=== PATIENT | male | born 1940 | race Caucasian/White ===

== ENCOUNTER 2023-03-12 13:01 | Inpatient (IN) ==
--- NOTE | 2023-03-12 13:17 | ED Triage Note ---
Date of Service March 12, 2023 Provider in Triage Author: Eden Gale History of Present Illness This patient was briefly evaluated while in triage. An abbreviated physical exam was performed. This patient is a 82-year-old Male who presents to the ED for evaluation of low back pain. Symptoms started 2 weeks ago. Denies recent fall/trauma. Denies fever/chills, n/v, abd pain, urinary symptoms. History of back surgery. No radiation. Physical Exam Constitutional: alert and oriented x3. no acute distress. HEENT: normocephalic, atraumatic. normal conjunctiva.PERRLA. EOM's grossly in tact. Respiratory: equal chest rise. normal respiratory effort, no accessory muscle use. Cardiovascular: regular rate and rhythm. MSK: moves all 4 extremities spontaneously Psych:appropriate mood and affect. Initial orders for labs and / or imaging were placed and patient was placed in the waiting area until a bed is available. Please see further documentation for the full ED course.
--- NOTE | 2023-03-12 14:34 | Emergency Department Note ---
History of Present Illness General Chief complaint: Back Injury/Pain Stated complaint: LOWER BACK PAIN Time Seen by Provider: 03/12/23 14:02 History of Present Illness Maximum Pain Intensity: 8 Patient is an 82-year-old male with past medical history significant for heart disease on Plavix and Eliquis, diabetes, GERD, hypothyroidism, among other chronic medical problems who presents to the emergency department for evaluation of bilateral low back pain x 2 and half weeks. He states his pain started acutely, he woke up and tried to get out of bed and he could not secondary to pain. There is no fall at that time, trauma or injury to the area. Remote history of a lumbar spine surgery. He reports midline mid to low back pain that radiates out the hips bilaterally. He subsequently has also noted abdominal bloating and constipation, has not had a bowel movement in a week. He did have a small small movement on Friday (3 days ago). He has been taking Tylenol for his symptoms. He has tried a heating pad. He saw PCP and was prescribed prednisone which did not help. He was seen in the ED at [facility], they report performed a CT scan, unclear of what structures were visualized, but per patient and family, "they did not find anything." The patient has suffered several falls in the last couple of days secondary to his pain. Family member does note however that he is able to negotiate the stairs in their home to get around and to use the bathroom. He has not had any trouble with bladder incontinence. He rates his pain an 8/10. Allergies Allergy/AdvReac Type Severity Reaction Status Date / Time sulfamethoxazole Allergy Mild Rash Verified 03/12/23 14:19 [From Bactrim] trimethoprim [From Bactrim] Allergy Mild Rash Verified 03/12/23 14:19 Past Med/Surg History Medical History (Updated 03/12/23 @ 16:51 by Caro Philippe) Hypothyroidism Hypertension GERD (gastroesophageal reflux disease) Diabetes Heart disease Surgical History History of total hip arthroplasty H/O lumbosacral spine surgery Heart valve replaced Social History Smoking Status: Unknown if ever smoked Preferred Language: Australian Feels Safe at Home: Yes Review of Systems A total of 10 systems reviewed and were otherwise negative Physical Exam Vital Signs Vital Signs - 24 hr 03/12/23 13:15 03/12/23 15:24 03/12/23 15:24 Temperature 36.9 C Temperature Source Temporal Artery Scan Pulse Rate 99 H Pulse Rate [Apical] 87 Respiratory Rate 20 16 Respiratory Effort / Characteristics Non-Labored Spontaneous Respiratory Depth Normal Respiratory Pattern Regular Blood Pressure 105/66 Blood Pressure [Left Arm] 109/81 Blood Pressure Mean 79 Blood Pressure Mean [Left Arm] 90 Blood Pressure Position Sitting Pulse Oximetry 97 97 96 Oxygen Delivery Method Room Air Room Air Sepsis Recent Fever Within 48 Hours No Sepsis New/Unexplained Change in Mental Status No Sepsis Action Taken by Nursing No Action Required PHYSICAL EXAM: Vital Signs: Reviewed Nurse's notes. CONSTITUTIONAL: Pleasant 82-year-old male laying on the gurney. There is mild discomfort with position changes. CARDIOVASCULAR: Regular rate and rhythm. Peripheral pulses easily palpable. RESPIRATORY: Breath sounds equal and clear to auscultation. ABDOMEN: Bowel sounds are present. Abdomen is soft, nontender and nondistended. INTEGUMENTARY: Multiple purpura lesions noted primarily on the arms. Several superficial skin tears and abrasions present. LYMPH: No lymphadenopathy. SPINE: Examination of the patient's back does not demonstrate any ecchymosis, abrasions or outward signs of trauma. Well-healed lumbar surgical scar noted. He does have a scabbed over lesion which was thought to be from a burn from his heating pad. Patient has midline discomfort to palpation over the low thoracic spine in the midline. There is no pain over the SI joint or the sciatic notch. He has increased pain with range of motion including rotation and flexion. EXTREMITIES: Leg lengths are symmetrical. Negative logroll bilaterally. Normal strength including dorsi-flexion and plantar flexion of the great toes and ankles and flexion and extension of the knees and flexion of the hips. Negative bilateral straight leg raise testing. Lower extremity DTRs are equal and symmetrical bilaterally. Distal pulses are easily palpable. Sensation light touch is intact over the lower extremities bilaterally. Course Course The patient was seen and evaluated as above. He has no old records our facility for review. He presents to the emergency department for evaluation of back pain that has been present for about 2-1/2 weeks. IV lock was initiated and laboratory studies were collected. CBC with differential, CMP, INR and urinalysis were obtained. CT scan of the thoracic, lumbar spine and abdomen and pelvis were ordered. Laboratory studies per my interpretation note a mildly daily elevated white count at 12,600, possibly related to recent prednisone therapy. No anemia. No thrombocytopenia. INR is 1.0. Potassium mildly elevated at 5.5. BUN and creatinine elevated at 50 and 1.78, unclear whether this is indicative of WENDY or more CKD as I have no old labs to compare to. Elevated nonfasting glucose 236. Mild elevation of transaminases of unclear significance. Urine microscopy notes no sign for UTI. The patient was treated with IV Zofran and morphine. CT scan of the abdomen and pelvis per my interpretation shows no evidence for obstruction. Radiologist concurs. No acute intra-abdominal pathology. CT scan of the thoracic spine per my interpretation note a T12 compression fracture. Radiologist states this is consistent with a burst fracture with 60% loss of vertebral height and retropulsion resulting in central canal stenosis. CT scan of the lumbar spine shows no evidence for acute fracture or subluxation of the lumbar spine. Diffuse degenerative changes noted. Case reviewed with attending physician, Dr. Mei. I did discuss thoracic spine CT scan findings with Dr. Cheng with orthopedic spine surgery. Patient discussed with investment fund manager. All laboratory and diagnostic imaging studies were discussed with patient and family. Given the CT scan findings, recommended further inpatient care, evaluation by orthopedic spine surgery, and consideration for short term rehab. Patient and his family were in agreement. Care was reviewed with the [facility] hospitalist service for admission/observation. Differential diagnoses considered included spinal stenosis, vertebral compression fracture, disc herniation, acute compression syndrome, cauda equina, diskitis, epidural abscess, hematoma, constipation, fecal impaction, bowel obstruction, mass or malignancy, lytic lesion, among others. Administered Medications Discontinued Medications Morphine Sulfate (Morphine Sulfate 2 Mg/Ml Carp) 2 mg IV NOW STA Stop: 03/12/23 16:42 Last Admin: 03/12/23 16:54 Dose: 2 mg Documented By: TORRIE Ondansetron HCl (Ondansetron Inj 2 Mg/Ml 2 Ml Vial) 4 mg IV NOW STA Stop: 03/12/23 16:42 Last Admin: 03/12/23 16:54 Dose: 4 mg Documented By: TORRIE Medical Decision Making Differential Diagnosis See ED course. Medical Records Attestation: I reviewed the patient's medical records. Home Medications Current Medication List: was personally reviewed by me Laboratory Data Attestation: I reviewed the patient's lab results. 03/12/23 14:50 03/12/23 14:50 Lab Results 03/12/23 03/12/23 Range/Units 14:50 16:23 WBC 12.66 H (4.8-10.8) K/ul RBC 5.44 (4.70-6.10) M/uL Hgb 16.7 (14.0-18.0) g/dl Hct 50.2 (42.0-52.0) % MCV 92.3 (80.0-100.0) fL MCH 30.7 (25.0-34.0) pg MCHC 33.3 (32.0-36.0) g/dL RDW Std Deviation 53.0 H (36.4-46.3) fL RDW Coeff of Miri 15.8 H (11.5-14.5) % Plt Count 350 (130-400) K/uL MPV 11.7 (9.4-12.4) fL Immature Gran % (Auto) 2.2 % Neut % (Auto) 85.2 % Lymph % (Auto) 9.3 % [place] % (Auto) 2.9 % Eos % (Auto) 0.0 % Baso % (Auto) 0.4 % Neut # (Auto) 10.78 H (1.40-6.50) K/uL Lymph # (Auto) 1.18 L (1.20-3.40) K/uL [place] # (Auto) 0.37 (0.11-0.59) K/uL Eos # (Auto) 0.00 (0.00-0.50) K/uL Baso # (Auto) 0.05 (0.00-0.20) K/uL Immature Gran # (Auto) 0.28 H (0.01-0.20) K/uL PT 10.9 (9.0-12.0) Seconds INR 1.0 (0.9-1.1) Sodium 138 (136-145) mmol/L Potassium 5.5 H (3.5-5.1) mmol/L Chloride 101 (98-107) mmol/L Carbon Dioxide 27 (21-32) mmol/L Anion Gap 10 (3-11) BUN 50 H (6-23) mg/dl Creatinine 1.78 H (0.6-1.4) mg/dl Est Cr Clr Drug Dosing Not Reportable Est GFR ( Amer) 40.6 ml/min Est GFR (Non-Af Amer) 35.0 ml/min BUN/Creatinine Ratio 28.1 H (10-20) Glucose 236 H (70-99(Fasting)) mg/dl Calcium 10.1 (8.6-10.3) mg/dl Total Bilirubin 1.3 H (0.2-1.0) mg/dl AST 38 (13-39) U/L ALT 85 H (7-52) U/L Alkaline Phosphatase 132 H (34-104) U/L Total Protein 7.9 (6.0-8.3) gm/dl Albumin 4.5 (3.4-5.0) gm/dl Globulin 3.4 (2.5-4.0) gm/dl Albumin/Globulin Ratio 1.3 (0.9-2) Urine Color Yellow Urine Appearance Clear (Clear) Urine pH 5.0 (4.5-7.5) Ur Specific [place] 1.036 H (1.000-1.030) Urine Protein 1+ H (Negative) Urine Glucose (UA) 3+ H (Negative) Urine Ketones Trace H (Negative) Urine Blood Negative (Negative) Urine Nitrite Negative (Negative) Urine Bilirubin Negative (Negative) Urine Urobilinogen Negative (Negative) Ur Leukocyte Esterase Negative (Negative) Urine WBC (Auto) 0 (0-5) /hpf Urine RBC (Auto) 0-4 (0-4) /hpf U Hyaline Cast (Auto) 1-5 (0-5) /lpf U Epithel Cells (Auto) 5-10 H (0-5) /lpf Urine Bacteria (Auto) Negative (Negative) Imaging Data Attestation: I personally reviewed and interpreted this imaging study as follows: Radiologist's Impression: Lumbar Spine CT 03/12/23 14:19 CT lumbar spine wo con HISTORY: 82 years-old Male MID-LOW BACK PAIN X 2.5 WEEKS acute mental lobe at pain without reported trauma COMPARISON: CT abdomen and pelvis and lumbar spine studies of same day. TECHNIQUE: Multiple axial CT images of the lumbar spine were obtained without the use of IV contrast. A dose lowering technique was used consistent with the principals of ALARA. FINDINGS: Demineralized appearance of the bones. Multilevel intervertebral disc space narrowing is probably mild however is moderate posteriorly at L5-S1. [id number] spondylitic spurring with mostly moderate multilevel facet arthrosis and vacuum disc phenomena. No acute fracture or subluxation of the lumbar spine. The imaged sacrum and iliac bones also appear to be intact. Limited evaluation of the central canal and neural foramina by CT technique. There is suggestion of mild multilevel central canal stenosis, most pronounced at L1-L2 secondary to posterior disc osteophyte complex formations. Additionally, there is at least mild multilevel neural foraminal narrowing. Moderate to severe left-sided foraminal stenosis at L3-L4. Compression deformity at T12 with 60% vertebral body height loss centrally is noted in conjunction with 6 mm retropulsion and mild paravertebral edema. Air is noted interposed between the fracture fragments, likely secondary to adjacent vacuum disc phenomenon. Subtle fracture extension into the pedicles, right greater than left. AP dimension of the thecal sac measures 8 mm. Moderate central canal stenosis. IMPRESSION: 1. No acute fracture or subluxation of the lumbar spine. 2. Acute to subacute-appearing T12 burst fracture with 60% vertebral body height loss and 6 mm retropulsion. Fracture lines extend into the bilateral pedicles compatible with a 3 column fracture resulting in moderate central canal stenosis at this level. 3. Demineralized appearance of the bones with degenerative change as above. ACT 112: Negative or not required by law. The above report was generated using voice recognition software. It may contain grammatical, syntax or spelling errors. Electronically signed by: Ravinder Palma M.D. 03/12/2023 4:[address] 03/12/23 14:19 CT OF THE THORACIC SPINE CLINICAL HISTORY: MID-LOW BACK PAIN X 2.5 WEEKS COMPARISON STUDY: No previous studies for comparison. TECHNIQUE: Helical axial images of the thoracic spine were obtained. Sagittal and coronal reconstructions were viewed. Automated exposure control was utilized for the study. A dose lowering technique was utilized adhering to the principles of ALARA. FINDINGS: Alignment of the thoracic spine is anatomic. There is a moderate T12 compression fracture with 60% loss of vertebral body height centrally. This is consistent with a burst fracture. There is 6 mm retropulsion which results in moderate central canal stenosis. Fracture extends through the superior and inferior endplates. Fracture slightly extends into the bilateral pedicles. There is minimal paravertebral stranding. Gas within the vertebral body and adjacent disc spaces is present. Slight loss of height of the inferior endplate of T1 is chronic. There is also slight loss of height of the superior endplate of T10 which is chronic. There are no osseous lesions. Central disc protrusion at T6-T7 with superior subligamentous migration results in mild central canal stenosis. No acute fractures within the visualized posterior ribs. Arthritic aortic valve is noted. Extensive coronary artery calcification. A septated lateral segment hepatic cyst is present. There is emphysema. IMPRESSION: T12 burst fracture with 60% loss of vertebral body height and 6 mm of retropulsion which results in moderate central canal stenosis. This fracture is likely subacute. No additional acute to subacute thoracic spine fractures. ACT 112: Negative or not required by law. Electronically signed by: Trav De Dios M.D. 03/12/2023 4:11 PM Abdomen/Pelvis CT 03/12/23 15:38 CT abd pelvis wo con CLINICAL HISTORY: ABD PAIN/BACK PAIN, CONSTIPATION X 1 WEEK TECHNIQUE: Helical axial images of the abdomen and pelvis were obtained. Automated dose lowering techniques and/or adjustment according to patient size were utilized for this exam. This exam was performed without intravenous contrast. CT DOSE: 1766.62 mGy.cm COMPARISON: None available at the time of this dictation. FINDINGS: Lower chest: Biatrial enlargement and aortic valvular prosthesis is seen. Liver: Left hepatic cyst is seen. Gallbladder and biliary tree: No calcified gallstones. Normal caliber wall. No intra- or extrahepatic biliary ductal dilation. Pancreas: Unremarkable, no focal lesions. Spleen: Unremarkable. Adrenals: Unremarkable. Kidneys and ureters: Unremarkable. Bladder: Unremarkable. Reproductive organs: Unremarkable. Bowel: Diverticulosis is seen without evidence of diverticulitis. Lymph nodes Retroperitoneal: Unremarkable. Pelvic: Unremarkable. Mesenteric: Unremarkable. Peritoneum: Normal. Vessels: Atherosclerotic calcifications are seen. Abdominal wall: Unremarkable. Bones: Degenerative changes in the visualized spine. Left hip arthroplasty is seen. IMPRESSION: No acute abnormalities are seen. No fecal impaction is seen in this patient with history of constipation. ACT 112: Negative or not required by law. Electronically signed by: Marc Shah M.D. 03/12/2023 4:19 PM MDM Narrative See ED Course. Impression & Plan Burst fracture of T12 vertebra, Intractable back pain, Multiple falls Discharge Plan Visit Data Chief Complaint: Back Injury/Pain Stated Complaint: LOWER BACK PAIN ED Provider: Wyatt Mei ED Midlevel Provider: Caro Philippe Discharge Problem: Burst fracture of T12 vertebra, Intractable back pain, Multiple falls Patient Disposition: Being Evaluated by Hospitalist Forms Stand Alone Forms: [facility] Referrals Referrals: Nicolasa Husain CRNP [Primary Care Provider] -
[2023-03-12 15:30] LABS: Basophils # (auto) 0.05 K/uL (0.00-0.20); Basophils % (auto) 0.4 %; Hematocrit (blood only) 50.2 % (42.0-52.0); Hemoglobin 16.7 g/dl (14.0-18.0); Immature Granulocytes # (auto) 0.28 K/uL (0.01-0.20); Immature Granulocytes % (auto) 2.2 %; Lymphocytes # (auto) 1.18 K/uL (1.20-3.40); Lymphocytes % (auto) 9.3 %; Mean Corpuscular Hemoglobin 30.7 pg (25.0-34.0); Mean Corpuscular Hgb Conc 33.3 g/dL (32.0-36.0); Mean Corpuscular Volume 92.3 fL (80.0-100.0); Mean Platelet Volume 11.7 fL (9.4-12.4); Monocytes # (auto) 0.37 K/uL (0.11-0.59); Monocytes % (auto) 2.9 %; Neutrophils # (auto) 10.78 K/uL (1.40-6.50); Neutrophils % (auto) 85.2 %; Platelet Count 350 K/uL (130-400); RDW Coefficient of Variation 15.8 % (11.5-14.5); Red Blood Count 5.44 M/uL (4.70-6.10); White Blood Count 12.66 K/ul (4.8-10.8)
[2023-03-12 15:34] LABS: Alanine Aminotransferase 85 U/L (7-52); Albumin Globulin Ratio 1.3 (0.9-2); Albumin Level 4.5 gm/dl (3.4-5.0); Alkaline Phosphatase 132 U/L (34-104); Anion Gap 10 (3-11); Aspartate Aminotransferase 38 U/L (13-39); BUN Creatinine Ratio 28.1 (10-20); Bilirubin,Total 1.3 mg/dl (0.2-1.0); Blood Urea Nitrogen 50 mg/dl (6-23); Calcium 10.1 mg/dl (8.6-10.3); Carbon Dioxide 27 mmol/L (21-32); Chloride 101 mmol/L (98-107); Est GFR (African American) 40.6 ml/min; Globulin 3.4 gm/dl (2.5-4.0); Glucose 236 mg/dl (70-99(Fasting)); Potassium 5.5 mmol/L (3.5-5.1); Sodium 138 mmol/L (136-145); Total Protein 7.9 gm/dl (6.0-8.3)
[2023-03-12 15:58] LABS: Prothrombin Time 10.9 Seconds (9.0-12.0)
--- NOTE | 2023-03-12 16:13 | CT Scan Report ---
CT OF THE THORACIC SPINE CLINICAL HISTORY: MID-LOW BACK PAIN X 2.5 WEEKS COMPARISON STUDY: No previous studies for comparison. TECHNIQUE: Helical axial images of the thoracic spine were obtained. Sagittal and coronal reconstru ctions were viewed. Automated exposure control was utilized for the study. A dose lowering techniqu e was utilized adhering to the principles of ALARA. FINDINGS: Alignment of the thoracic spine is anatomic. There is a moderate T12 compression fracture w ith 60% loss of vertebral body height centrally. This is consistent with a burst fracture. There is 6 mm retropulsion which results in moderate central canal stenosis. Fracture extends through the super ior and inferior endplates. Fracture slightly extends into the bilateral pedicles. There is minimal p aravertebral stranding. Gas within the vertebral body and adjacent disc spaces is present. Slight los s of height of the inferior endplate of T1 is chronic. There is also slight loss of height of the sup erior endplate of T10 which is chronic. There are no osseous lesions. Central disc protrusion at T6-T 7 with superior subligamentous migration results in mild central canal stenosis. No acute fractures w ithin the visualized posterior ribs. Arthritic aortic valve is noted. Extensive coronary artery calci fication. A septated lateral segment hepatic cyst is present. There is emphysema. IMPRESSION: T12 burst fracture with 60% loss of vertebral body height and 6 mm of retropulsion which results in moderate central canal stenosis. This fracture is likely subacute. No additional acute to subacute thoracic spine fractures. ACT 112: Negative or not required by law. Electronically signed by: Trav De Dios M.D. 03/12/2023 4:11 PM
--- NOTE | 2023-03-12 16:20 | CT Scan Report ---
CT abd pelvis wo con CLINICAL HISTORY: ABD PAIN/BACK PAIN, CONSTIPATION X 1 WEEK TECHNIQUE: Helical axial images of the abdomen and pelvis were obtained. Automated dose lowering tech niques and/or adjustment according to patient size were utilized for this exam. This exam was perfor med without intravenous contrast. CT DOSE: 1766.62 mGy.cm COMPARISON: None available at the time of this dictation. FINDINGS: Lower chest: Biatrial enlargement and aortic valvular prosthesis is seen. Liver: Left hepatic cyst is seen. Gallbladder and biliary tree: No calcified gallstones. Normal caliber wall. No intra- or extrahepatic biliary ductal dilation. Pancreas: Unremarkable, no focal lesions. Spleen: Unremarkable. Adrenals: Unremarkable. Kidneys and ureters: Unremarkable. Bladder: Unremarkable. Reproductive organs: Unremarkable. Bowel: Diverticulosis is seen without evidence of diverticulitis. Lymph nodes Retroperitoneal: Unremarkable. Pelvic: Unremarkable. Mesenteric: Unremarkable. Peritoneum: Normal. Vessels: Atherosclerotic calcifications are seen. Abdominal wall: Unremarkable. Bones: Degenerative changes in the visualized spine. Left hip arthroplasty is seen. IMPRESSION: No acute abnormalities are seen. No fecal impaction is seen in this patient with history of constipat ion. ACT 112: Negative or not required by law. Electronically signed by: Marc Shah M.D. 03/12/2023 4:19 PM
[2023-03-12 16:33] LABS: Appearance Urine Clear (Clear); Bacteria Urine Automated Negative (Negative); Bilirubin Urine Negative (Negative); Blood Urine Negative (Negative); Color Urine Yellow; Glucose Urine UA 3+ (Negative); Ketones Urine Trace (Negative); Leukocyte Esterase Urine Negative (Negative); Nitrite Urine Negative (Negative); Protein Urine 1+ (Negative); RBC Urine Automated 0-4 /hpf (0-4); Specific Gravity Urine 1.036 (1.000-1.030); Urobilinogen Urine Negative (Negative); WBC Urine Automated 0 /hpf (0-5)
[2023-03-12] MEDS ORDERED: MoRPHine SULFATE 2 MG/ML CARP IV STA (16:41)
[2023-03-12] MEDS ORDERED: ONDANSETRON INJ 2 MG/ML 2 ML VIAL IV STA (16:41)
--- NOTE | 2023-03-12 16:47 | CT Scan Report ---
CT lumbar spine wo con HISTORY: 82 years-old Male MID-LOW BACK PAIN X 2.5 WEEKS acute mental lobe at pain without reported trauma COMPARISON: CT abdomen and pelvis and lumbar spine studies of same day. TECHNIQUE: Multiple axial CT images of the lumbar spine were obtained without the use of IV contrast. A dose lowering technique was used consistent with the principals of JOAQUINA. FINDINGS: Demineralized appearance of the bones. Multilevel intervertebral disc space narrowing is probably mil d however is moderate posteriorly at L5-S1. [id number] spondylitic spurring with mostly moderat e multilevel facet arthrosis and vacuum disc phenomena. No acute fracture or subluxation of the lumba r spine. The imaged sacrum and iliac bones also appear to be intact. Limited evaluation of the centra l canal and neural foramina by CT technique. There is suggestion of mild multilevel central canal erik nosis, most pronounced at L1-L2 secondary to posterior disc osteophyte complex formations. Additional ly, there is at least mild multilevel neural foraminal narrowing. Moderate to severe left-sided gayle inal stenosis at L3-L4. Compression deformity at T12 with 60% vertebral body height loss centrally is noted in conjunction wi th 6 mm retropulsion and mild paravertebral edema. Air is noted interposed between the fracture fragm ents, likely secondary to adjacent vacuum disc phenomenon. Subtle fracture extension into the pedicle s, right greater than left. AP dimension of the thecal sac measures 8 mm. Moderate central canal sten osis. IMPRESSION: 1. No acute fracture or subluxation of the lumbar spine. 2. Acute to subacute-appearing T12 burst fracture with 60% vertebral body height loss and 6 mm retrop ulsion. Fracture lines extend into the bilateral pedicles compatible with a 3 column fracture resulti ng in moderate central canal stenosis at this level. 3. Demineralized appearance of the bones with degenerative change as above. ACT 112: Negative or not required by law. The above report was generated using voice recognition software. It may contain grammatical, syntax o r spelling errors. Electronically signed by: Ravinder Palma M.D. 03/12/2023 4:46 PM
[2023-03-12] MEDS ORDERED: MoRPHine SULFATE 2 MG/ML CARP IV PRN ×2 (17:13→20:30)
--- NOTE | 2023-03-12 17:33 | History & Physical Report ---
Date of Service March 12, 2023 Assessment & Plan (1) Multiple falls: (2) Burst fracture of T12 vertebra: (3) Intractable back pain: Plan: - Admit to med surg - Consult ortho spine - Dr. Cheng -- pt reports hx of lumbar decompression fusion in lumbar spine 5-6 years ago by [place] ortho surgeon - Allow PT/OT at this time - Pain management with tylenol around the clock starting now, and tramadol prn, allow IV MS for breakthrough pain, bowel regimen ordered - Imaging including thoracic, lumbar CT and abdomen pelvis CT reviewed personally - Thoracic CT : T12 burst fracture with 60% loss of vertebral body height and 6 mm of retropulsion which results in moderate central canal stenosis. This fracture is likely subacute. No additional acute to subacute thoracic spine fractures. - Noted WBC of 11K could be reactive from recent course of steroids, pt reports having 3 days of steroid left, will hold until seen by ortho spine - Cont Eliquis and continue plavix with hx of AV valve replacement, unknown if this is mechanical valve, may require bridge with heparin if needs surgical procedure - - Make NPO after midnight in case needs for surgery (4) WENDY (acute kidney injury): Plan: - Unknown creatinine baseline currently, Cr. 1.78 and BUN 50 on arrival, will allow diet for now and give slow maintenance fluids x 1 bag (5) Hyperkalemia: Plan: - Noted to be 5.5 on admission, trend with am labs (6) Heart disease: Plan: - Patient is status post AV replacement on 09/08 in [facility], 3 cardiac stents placed in May 2022, follows with [facility] cardiology in [place]. He reports just completing 36 sessions of cardiac rehab since August. - HIM records from cardiology results - AV valve replacement is unknown if mechanical at this time, see above regarding anticoagulation/antiplatelet - Consider echo, await to see if can be obtained from outpatient records - No signs of volume overload, if anything he appears dry today with possible WENDY (7) Diabetes: Plan: - ISS with Accu-Cheks ACHS -Check A1c with a.m. labs -Glucose is 236 on admission, likely elevated secondary to steroid use - Hold metformin and continue jardiance (8) Hypothyroidism: Plan: - Cont levothyroxine po (9) GERD (gastroesophageal reflux disease): Plan: - Hx of use of hycosamine abdominal discomfort DVT ppx: teds, scds. anticoagulation as above Lines: 2 PIV FEN/GI: Allow diet currently and make NPO after midnight CODE: FULL Dispo: From home, likely to remain in the hospital x 1-2 days. Will need to obtain records from outpatient cardiology. History of Present Illness Chief Complaint: Falls, back pain Primary Care Provider: BROOKE Seth This is an 82-year-old male with PMHx of multiple falls, CAD s/p 3 cardiac stents in May 2022, AV replacement 08/20/22 at [facility], recently completing cardiac rehab as an outpatient, hx of lumbar decompression fusion of L1-L5 about 5-6 years ago in [place], HTN, HLD, DM type II, GERD and hypothyroidism who presented to the ER with mid to lower back pain which has been ongoing for the past 2.5 weeks after sustaining a fall. He reports developing lower to mid back pain about 3 weeks ago which then caused him to have a mechanical fall 2 weeks ago, causing worsening pain, and then again fell about 5 days ago. He has been taking Tylenol for pain, but notes that minimal movement cause it to worsen. He had gone to the [place] ER and some type of imaging was completed, however he was not told that there was any type of new fracture. Then he saw his PCP who put him on a prednisone taper which she has 3 days left to complete. With worsening pain and frustration he presented here to [facility]. He denies any neurological symptoms, no loss of bowel or bladder dysfunction, no shocklike pain or numbness or tingling down into distal extremities. He reports having been taking all of his medications including Plavix and Eliquis 2.5 twice daily, last dose was this afternoon. He has multiple areas on his forearms which are bruised from recent falls. He notes he has been ambulating with a walker since then but prior to 3 weeks ago he was ambulating without assistive device. Patient states that he is eating and drinking without difficulty, no abdominal complaints, no nausea vomiting or diarrhea. He is making urine but states that he may be on a water pill. His manages his medications but she is currently driving home to [place]. Allergies Allergy/AdvReac Type Severity Reaction Status Date / Time sulfamethoxazole Allergy Mild Rash Verified 03/12/23 14:19 [From Bactrim] trimethoprim [From Bactrim] Allergy Mild Rash Verified 03/12/23 14:19 Home Medications Medication Instructions Recorded Confirmed Type apixaban 2.5 mg tablet (Eliquis) 2.5 mg PO BID 03/12/23 03/12/23 History clopidogrel 75 mg tablet 75 mg PO DAILY 03/12/23 03/12/23 History empagliflozin 10 mg tablet 10 mg PO QAM 03/12/23 03/12/23 History (Jardiance) ezetimibe 10 mg tablet 10 mg PO QAM 03/12/23 03/12/23 History famotidine 40 mg tablet 40 mg PO QAM 03/12/23 03/12/23 History fluticasone propionate 110 2 puff inhalation BID 03/12/23 03/12/23 History mcg/actuation HFA aerosol inhaler hyoscyamine sulfate 0.125 mg tablet 0.125 mg PO TID PRN Abdominal 03/12/23 03/12/23 History Discomfort latanoprost 0.005 % eye drops 1 drp OPB QPM 03/12/23 03/12/23 History levothyroxine 25 mcg tablet 25 mcg PO DAILYBB 03/12/23 03/12/23 History hcwmlf-fkpxwylq-pzvtgtv 2 - 3 cap PO WM 03/12/23 03/12/23 History 24,000-76,000-120,000 unit capsule,delayed rel (Creon) magnesium oxide 400 mg (241.3 mg 400 mg PO QAM 03/12/23 03/12/23 History magnesium) tablet metformin 1,000 mg tablet 1,000 mg PO BID 03/12/23 03/12/23 History pantoprazole 20 mg tablet,delayed 20 mg PO QAM 03/12/23 03/12/23 History release prednisone 10 mg tablet See Rx Instructions .Route .COMPLEX 03/12/23 03/12/23 History Past Med/Surg History Medical History (Updated 03/12/23 @ 18:40 by Janet Stevens PA-C) Hypothyroidism Hypertension GERD (gastroesophageal reflux disease) Diabetes Heart disease Surgical History History of total hip arthroplasty H/O lumbosacral spine surgery Heart valve replaced Social History (Reviewed 03/12/23 @ 16:54 by Caro Villeda Smoking Status: Former smoker Second Hand Exposure: No; Do You Dip or Chew Tobacco: No; Hx Alcohol Use: No Hx Substance Use: No Preferred Language: Uzbek Communication Ability: Effective Net Software Engineer Required: No Beliefs That Will Affect Care: None Current Living Situation: Spouse Feels Safe at Home: Yes Assistive Devices: Denture - Upper, Denture - Lower, Glasses and Walker Review of Systems Review of Systems: Constitutional: No fever, sweats or chills Eyes: No diplopia, no worsening or blurred vision ENT: normal hearing, no trouble swallowing, his voice is coarse reports this is worsened since being on prednisone taper Respiratory: No cough, sputum, dyspnea at rest or on exertion Cardiovascular: No chest pain, tightness or palpitations Abdomen: No pain, nausea, vomiting, diarrhea or constipation Musculoskeletal: No joint pain, calf pain, swelling Neurologic: No weakness, numbness/tingling, + balance problems Psychiatric: No anxiety or depression Skin: No rash or itch Physical Exam Physical Exam: General: awake, alert, no apparent distress, thin white male Head: Normocephalic, atraumatic ENT: PERRL, EOMI, no pharyngeal exudate, mucous membranes moist, hoarse voice Chest: Clear to auscultation, on room air, no adventitious breath sounds Cardiac: Regular rate and rhythm, occasional PVC, no murmur, no JVD, normal peripheral pulses, good capillary refill Abdominal: NABS x 4 quadrants, soft, nondistended, nontender to palpation, no rebound or guarding Extremities: Multiple areas of ecchymosis over her forearms with several skin tears, legs normal inspection, no peripheral edema or erythema, calfs nontender to palpation Psych: Normal mood and affect Neuro: AAO x 3, strength intact bilaterally and rated 5/5, no motor deficits, speech is clear, no peripheral sensory deficits Results & Data Results & Data Vital Signs (Past 12 Hours) Vital Signs Temp Pulse Pulse Resp BP BP Pulse Ox 03/12/23 15:24 87 16 109/81 96 03/12/23 15:24 97 03/12/23 13:15 36.9 C 99 H 20 105/66 97 O2 Del Method 03/12/23 15:24 03/12/23 15:24 Room Air 03/12/23 13:15 Room Air Laboratory Results 03/12/23 03/12/23 16:23 14:50 WBC 12.66 H RBC 5.44 Hgb 16.7 Hct 50.2 MCV 92.3 MCH 30.7 MCHC 33.3 RDW Std Deviation 53.0 H RDW Coeff of Miri 15.8 H Plt Count 350 MPV 11.7 Immature Gran % (Auto) 2.2 Neut % (Auto) 85.2 Lymph % (Auto) 9.3 Hughes % (Auto) 2.9 Eos % (Auto) 0.0 Baso % (Auto) 0.4 Neut # (Auto) 10.78 H Lymph # (Auto) 1.18 L Hughes # (Auto) 0.37 Eos # (Auto) 0.00 Baso # (Auto) 0.05 Immature Gran # (Auto) 0.28 H PT 10.9 INR 1.0 Sodium 138 Potassium 5.5 H Chloride 101 Carbon Dioxide 27 Anion Gap 10 BUN 50 H Creatinine 1.78 H Est Cr Clr Drug Dosing Not Reportable Est GFR ( Amer) 40.6 Est GFR (Non-Af Amer) 35.0 BUN/Creatinine Ratio 28.1 H Glucose 236 H Calcium 10.1 Total Bilirubin 1.3 H AST 38 ALT 85 H Alkaline Phosphatase 132 H Total Protein 7.9 Albumin 4.5 Globulin 3.4 Albumin/Globulin Ratio 1.3 Urine Color Yellow Urine Appearance Clear Urine pH 5.0 Ur Specific [place] 1.036 H Urine Protein 1+ H Urine Glucose (UA) 3+ H Urine Ketones Trace H Urine Blood Negative Urine Nitrite Negative Urine Bilirubin Negative Urine Urobilinogen Negative Ur Leukocyte Esterase Negative Urine WBC (Auto) 0 Urine RBC (Auto) 0-4 U Hyaline Cast (Auto) 1-5 U Epithel Cells (Auto) 5-10 H Urine Bacteria (Auto) Negative Diagnostic Findings Lumbar Spine CT 03/12/23 14:19 CT lumbar spine wo con HISTORY: 82 years-old Male MID-LOW BACK PAIN X 2.5 WEEKS acute mental lobe at pain without reported trauma COMPARISON: CT abdomen and pelvis and lumbar spine studies of same day. TECHNIQUE: Multiple axial CT images of the lumbar spine were obtained without the use of IV contrast. A dose lowering technique was used consistent with the principals of JOAQUINA. FINDINGS: Demineralized appearance of the bones. Multilevel intervertebral disc space narrowing is probably mild however is moderate posteriorly at L5-S1. Dmud-zz-tizghaqy spondylitic spurring with mostly moderate multilevel facet arthrosis and vacuum disc phenomena. No acute fracture or subluxation of the lumbar spine. The imaged sacrum and iliac bones also appear to be intact. Limited evaluation of the central canal and neural foramina by CT technique. There is suggestion of mild multilevel central canal stenosis, most pronounced at L1-L2 secondary to posterior disc osteophyte complex formations. Additionally, there is at least mild multilevel neural foraminal narrowing. Moderate to severe left-sided foraminal stenosis at L3-L4. Compression deformity at T12 with 60% vertebral body height loss centrally is noted in conjunction with 6 mm retropulsion and mild paravertebral edema. Air is noted interposed between the fracture fragments, likely secondary to adjacent vacuum disc phenomenon. Subtle fracture extension into the pedicles, right greater than left. AP dimension of the thecal sac measures 8 mm. Moderate central canal stenosis. IMPRESSION: 1. No acute fracture or subluxation of the lumbar spine. 2. Acute to subacute-appearing T12 burst fracture with 60% vertebral body height loss and 6 mm retropulsion. Fracture lines extend into the bilateral pedicles compatible with a 3 column fracture resulting in moderate central canal stenosis at this level. 3. Demineralized appearance of the bones with degenerative change as above. ACT 112: Negative or not required by law. The above report was generated using voice recognition software. It may contain grammatical, syntax or spelling errors. Electronically signed by: Ravinder Palma M.D. 03/12/2023 4:[address] 03/12/23 14:19 CT OF THE THORACIC SPINE CLINICAL HISTORY: MID-LOW BACK PAIN X 2.5 WEEKS COMPARISON STUDY: No previous studies for comparison. TECHNIQUE: Helical axial images of the thoracic spine were obtained. Sagittal and coronal reconstructions were viewed. Automated exposure control was utilized for the study. A dose lowering technique was utilized adhering to the principles of ALARA. FINDINGS: Alignment of the thoracic spine is anatomic. There is a moderate T12 compression fracture with 60% loss of vertebral body height centrally. This is consistent with a burst fracture. There is 6 mm retropulsion which results in moderate central canal stenosis. Fracture extends through the superior and inferior endplates. Fracture slightly extends into the bilateral pedicles. There is minimal paravertebral stranding. Gas within the vertebral body and adjacent disc spaces is present. Slight loss of height of the inferior endplate of T1 is chronic. There is also slight loss of height of the superior endplate of T10 which is chronic. There are no osseous lesions. Central disc protrusion at T6-T7 with superior subligamentous migration results in mild central canal stenosis. No acute fractures within the visualized posterior ribs. Arthritic aortic valve is noted. Extensive coronary artery calcification. A septated lateral segment hepatic cyst is present. There is emphysema. IMPRESSION: T12 burst fracture with 60% loss of vertebral body height and 6 mm of retropulsion which results in moderate central canal stenosis. This fracture is likely subacute. No additional acute to subacute thoracic spine fractures. ACT 112: Negative or not required by law. Electronically signed by: Trav De Dios M.D. 03/12/2023 4:11 PM Abdomen/Pelvis CT 03/12/23 15:38 CT abd pelvis wo con CLINICAL HISTORY: ABD PAIN/BACK PAIN, CONSTIPATION X 1 WEEK TECHNIQUE: Helical axial images of the abdomen and pelvis were obtained. Automated dose lowering techniques and/or adjustment according to patient size were utilized for this exam. This exam was performed without intravenous contrast. CT DOSE: 1766.62 mGy.cm COMPARISON: None available at the time of this dictation. FINDINGS: Lower chest: Biatrial enlargement and aortic valvular prosthesis is seen. Liver: Left hepatic cyst is seen. Gallbladder and biliary tree: No calcified gallstones. Normal caliber wall. No intra- or extrahepatic biliary ductal dilation. Pancreas: Unremarkable, no focal lesions. Spleen: Unremarkable. Adrenals: Unremarkable. Kidneys and ureters: Unremarkable. Bladder: Unremarkable. Reproductive organs: Unremarkable. Bowel: Diverticulosis is seen without evidence of diverticulitis. Lymph nodes Retroperitoneal: Unremarkable. Pelvic: Unremarkable. Mesenteric: Unremarkable. Peritoneum: Normal. Vessels: Atherosclerotic calcifications are seen. Abdominal wall: Unremarkable. Bones: Degenerative changes in the visualized spine. Left hip arthroplasty is seen. IMPRESSION: No acute abnormalities are seen. No fecal impaction is seen in this patient with history of constipation. ACT 112: Negative or not required by law. Electronically signed by: Marc Shah M.D. 03/12/2023 4:19 PM Code Status & VTE Plan Code Status Full code -reports that he would not want aggressive or extraordinary measures. Supervising Physician Co-Signing Physician Notes I have seen and examined the patient and have discussed the case with the provider above. I agree with the assessment and plan as stated. 82-year-old man presents with back pain secondary to a T12 burst fracture as a result of traumatic falls. Patient reports losing his balance and having a mechanical fall. It does not appear there was any precipitating factor for the fall such as no lightheadedness or dizziness. Patient does report that after falling he had back pain which caused him to continue to fall secondary to pain that contributed to his imbalance. It is unclear how he was treating this at home but it he appears to be comfortable after Tylenol and tramadol this evening. He is comfortably lying in a supine position. He denies any changes in bowel or bladder function. He has no other gross focal neuromuscular deficits to his lower extremities. He does have skin abrasions present on his arms. He is elderly and in no acute distress As noted above, patient will be seen by ortho spine for consideration of additional treatment for his back fracture. He is on Eliquis and Plavix which would need to be held preoperatively. At this point we will continue them until operative management is recommended. Continue pain management and PT/OT to assess. Other chronic comorbidities appear to be at baseline as noted above. DO Joseph
[2023-03-12] MEDS ORDERED: traMADol HCL 50 MG TABLET PO STA (18:11)
[2023-03-12] MEDS ORDERED: ACETAMINOPHEN 500 MG TAB PO STA (18:11)
--- NOTE | 2023-03-12 19:07 | XRay Report ---
XR chest 1V portable CLINICAL HISTORY: Hx AV replacement, preop TECHNIQUE: Single frontal radiograph of the chest was obtained. Comparison: None available at the time of this dictation. FINDINGS: No lines and tubes are seen. Calcified aortic knob is seen. The lungs are clear. No evidence of pleur al effusion or pneumothorax. IMPRESSION: No acute chest disease. ACT 112: Negative or not required by law. Electronically signed by: Marc Shah M.D. 03/12/2023 7:06 PM
[2023-03-12] MEDS ORDERED: GLUCOSE 40% GEL 15 GM TUBE PO PRN (20:30)
[2023-03-12] MEDS ORDERED: GLUCOSE 10 TAB/TUBE PO PRN (20:30)
[2023-03-12] MEDS ORDERED: ONDANSETRON INJ 2 MG/ML 2 ML VIAL IV PRN (20:30)
[2023-03-12] MEDS ORDERED: GLUCAGON FOR INJ 1 MG VIAL SQ PRN (20:30)
[2023-03-12] MEDS ORDERED: DEXTROSE 50% 50 ML SYRINGE IV PRN (20:30)
[2023-03-12] MEDS ORDERED: traMADol HCL 50 MG TABLET PO PRN (20:30)
[2023-03-12] MEDS ORDERED: HYOSCYAMINE SULFATE 0.125 MG TAB PO PRN (20:30)
[2023-03-12] MEDS ORDERED: CARBOHYDRATES FOR HYPOGLYCEMIA PO PRN (20:30)
[2023-03-12] MEDS ORDERED: POLYETHYLENE (MIRALAX) 17 GM PACK PO PRN (20:30)
[2023-03-12] MEDS ORDERED: Patient's HEIGHT &/or WEIGHT Needed SCH (20:45)
--- NOTE | 2023-03-12 20:52 | Emergency Department Note ---
ED Visit Note The patient was seen and examined with william. I agree with the history, physical and findings. Please see the note for disposition and details. .
[2023-03-12] MEDS ORDERED: SODIUM CHLORIDE 0.9% 500 ML IV SCH (21:00)
[2023-03-12] MEDS ORDERED: INSULIN ASPART PER UNIT CHARGE SC SCH (21:00)
[2023-03-12] MEDS ORDERED: ACETAMINOPHEN 500 MG TAB PO SCH (21:00)
[2023-03-12] MEDS: LATANOPROST 0.005% OP SOLN 2.5 ML BTL OPB SCH (22:21)
[2023-03-12] MEDS: APIXABAN 2.5 MG TAB PO SCH (23:08)
[2023-03-13] MEDS ORDERED: Nursing to Pharmacy Communication SCH ×2 (01:45→08:15)
[2023-03-13] MEDS: traMADol HCL 50 MG TABLET PO SCH ×3 (02:22→17:08)
[2023-03-13] MEDS ORDERED: INSULIN ASPART PER UNIT CHARGE SC SCH (06:00)
[2023-03-13] MEDS: LEVOTHYROXINE SODIUM 25 MCG TABLET PO SCH (06:22)
[2023-03-13] MEDS: ACETAMINOPHEN 500 MG TAB PO SCH ×3 (06:22→22:18)
[2023-03-13 08:22] LABS: Calcium 9.3 mg/dl (8.6-10.3); Creatinine Clr Calc Pharmacy 36.1 ml/min; Est GFR (African American) 49.9 ml/min; Potassium 4.6 mmol/L (3.5-5.1)
[2023-03-13 08:23] LABS: Estimated Average Glucose 146 mg/dl; Hemoglobin A1C 6.7 % (4.5-5.6)
--- NOTE | 2023-03-13 08:33 | Orthopedic Consultation ---
Date of Consultation March 13, 2023 Assessment & Plan (1) Burst fracture of T12 vertebra: Assessment T12 burst fracture. Plan at this time in discussion this patient reviewing his CAT scan findings and clinical course. At this point I will order a brace to be worn when up and ambulating. We will see how he tolerates this over the next few days. Ultimately he would be a reasonable candidate for kyphoplasty in light of the large vacuum phenomenon at the T12 level. Will make further recommendations upon his progress. History of Present Illness Reason for Consultation: T12 fracture Attending Physician: Ronnell Valerio MD History of Present Illness Is a very pleasant 82-year-old male who presents yesterday with thoracolumbar back pain. This morning he does state he is very comfortable. He notes most of his discomfort in the thoracolumbar region when he gets out of bed in the morning. Denies any numbness or tingling lower extremities. Denies any specific trauma fall or event. The symptoms have been present for several weeks. Allergies Allergy/AdvReac Type Severity Reaction Status Date / Time sulfamethoxazole Allergy Mild Rash Verified 03/12/23 14:19 [From Bactrim] trimethoprim [From Bactrim] Allergy Mild Rash Verified 03/12/23 14:19 Home Medications Medication Instructions Recorded Confirmed Type apixaban 2.5 mg tablet (Eliquis) 2.5 mg PO BID 03/12/23 03/12/23 History clopidogrel 75 mg tablet 75 mg PO DAILY 03/12/23 03/12/23 History empagliflozin 10 mg tablet 10 mg PO QAM 03/12/23 03/12/23 History (Jardiance) ezetimibe 10 mg tablet 10 mg PO QAM 03/12/23 03/12/23 History famotidine 40 mg tablet 40 mg PO QAM 03/12/23 03/12/23 History fluticasone propionate 110 2 puff inhalation BID 03/12/23 03/12/23 History mcg/actuation HFA aerosol inhaler hyoscyamine sulfate 0.125 mg tablet 0.125 mg PO TID PRN Abdominal 03/12/23 03/12/23 History Discomfort latanoprost 0.005 % eye drops 1 drp OPB QPM 03/12/23 03/12/23 History levothyroxine 25 mcg tablet 25 mcg PO DAILYBB 03/12/23 03/12/23 History wluskd-xnoyicij-kbzpsla 2 - 3 cap PO WM 03/12/23 03/12/23 History 24,000-76,000-120,000 unit capsule,delayed rel (Creon) magnesium oxide 400 mg (241.3 mg 400 mg PO QAM 03/12/23 03/12/23 History magnesium) tablet metformin 1,000 mg tablet 1,000 mg PO BID 03/12/23 03/12/23 History pantoprazole 20 mg tablet,delayed 20 mg PO QAM 03/12/23 03/12/23 History release prednisone 10 mg tablet See Rx Instructions .Route .COMPLEX 03/12/23 03/12/23 History Patient History Medical History (Updated 03/12/23 @ 18:40 by Janet Stevens PA-C) Hypothyroidism Hypertension GERD (gastroesophageal reflux disease) Diabetes Heart disease Surgical History History of total hip arthroplasty H/O lumbosacral spine surgery Heart valve replaced Social History Smoking Status: Former smoker Second Hand Exposure: No; Do You Dip or Chew Tobacco: No; Hx Alcohol Use: No Hx Substance Use: No Preferred Language: Namibian Communication Ability: Effective Dressmaker Garment Fitter Required: No Beliefs That Will Affect Care: None Current Living Situation: Spouse Feels Safe at Home: Yes Assistive Devices: Denture - Upper, Denture - Lower, Glasses and Walker Physical Exam Physical Exam: On exam the patient is alert and oriented and cooperative. He is sitting up in bed eating breakfast. Is constricted testing lower extremities. Results & Data Vital Signs (Past 12 Hours) Vital Signs Temp Pulse Resp BP Pulse Ox O2 Del Method 03/13/23 07:33 36.7 C 85 16 135/69 96 Room Air 03/12/23 21:47 36.5 C 65 18 177/72 H 93 Room Air
[2023-03-13] MEDS: FLUTICASONE FUROATE 100MCG 14 PUFFS/INHALER INH SCH (08:42)
[2023-03-13] MEDS: FAMOTIDINE 40 MG TABLET PO SCH (08:43)
[2023-03-13] MEDS: MAGNESIUM OXIDE 400 MG TAB PO SCH (08:43)
[2023-03-13] MEDS: CLOPIDOGREL BISULFATE 75 MG TAB PO SCH (08:44)
[2023-03-13] MEDS: bisacodyL 5 MG TABEC PO SCH (08:44)
[2023-03-13] MEDS: PANTOprazole 40 MG TAB PO SCH (08:44)
[2023-03-13] MEDS ORDERED: EMPAGLIFLOZIN 10 MG TAB PO SCH (09:00)
[2023-03-13] MEDS: APIXABAN 2.5 MG TAB PO SCH ×2 (09:34→20:46)
[2023-03-13] MEDS: INSULIN ASPART PER UNIT CHARGE SC SCH ×3 (12:01→20:46)
--- NOTE | 2023-03-13 13:44 | Hospitalist Progress Note ---
Date of Service March 13, 2023 Assessment & Plan (1) Multiple falls: (2) Burst fracture of T12 vertebra: (3) Intractable back pain: Plan: - Admit to med surg - Consult ortho spine - Dr. Cheng -- pt reports hx of lumbar decompression fusion in lumbar spine 5-6 years ago by [place] ortho surgeon - Allow PT/OT at this time - Pain management with tylenol around the clock starting now, and tramadol prn, allow IV MS for breakthrough pain, bowel regimen ordered - Imaging including thoracic, lumbar CT and abdomen pelvis CT reviewed personally - Thoracic CT : T12 burst fracture with 60% loss of vertebral body height and 6 mm of retropulsion which results in moderate central canal stenosis. This fracture is likely subacute. No additional acute to subacute thoracic spine fractures. - Noted WBC of 11K could be reactive from recent course of steroids, pt reports having 3 days of steroid left, will hold until seen by ortho spine - Cont Eliquis and continue plavix with hx of AV valve replacement, unknown if this is mechanical valve, may require bridge with heparin if needs surgical procedure - - Make NPO after midnight in case needs for surgery 03/[address] Cheng Recommend placement of brace at this point Possible candidate for kyphoplasty if without improvement Continue scheduled tramadol and Tylenol for now PT and OT evaluation (4) WENDY (acute kidney injury): Plan: - Unknown creatinine baseline currently, Cr. 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 He reports just completing 36 sessions of cardiac rehab since August. - HIM records from cardiology results - AV valve replacement is unknown if mechanical at this time, see above regarding anticoagulation/antiplatelet - Consider echo, await to see if can be obtained from outpatient records - No signs of volume overload, if anything he appears dry today with possible WENDY No cardiac symptoms Monitor closely (7) Diabetes: Plan: - ISS with Accu-Cheks ACHS -Check A1c with a.m. labs -Glucose is 236 on admission, likely elevated secondary to steroid use BSG 136-150 Continue insulin sliding (8) Hypothyroidism: Plan: - Cont levothyroxine po (9) GERD (gastroesophageal reflux disease): Plan: - Hx of use of hycosamine abdominal discomfort DVT ppx: teds, scds. anticoagulation as above CODE: FULL Dispo: PT and OT evaluation Admission and Anticipated Discharge Date Admission Date: March 12, 2023 Subjective ff up for T12 burst fracture, etc. seen resting in chair, comfortable States back pain is well-managed by scheduled tramadol and Tylenol no chest pain, dyspnea, palpitations, dizziness No abdominal pain, nausea/ vomiting No fever/chills no other symptoms Review of Systems Review of Systems: all noted and negative except for above Physical Exam Physical Exam: General- oriented x 3, not in distress, speaks in sentences with no effort or accessory muscle use Eyes- anicteric Neck- no JVD Lungs- clear breath sounds bilaterally, no rales/wheezes Heart- normal rate, regular rhythm; no murmurs Abdomen- normal bowel sounds, nondistended, soft, nontender Extremities- no pretibial edema, no calf tenderness Kyphotic spine No tenderness No edema, hematoma Neuro- alert, oriented x 3; no gross focal neurologic deficits Skin- warm & dry Results & Data Results & Data Vital Signs (Past 12 Hours) Vital Signs Temp Pulse Pulse Resp BP Pulse Ox O2 Del Method 03/13/23 11:03 36.8 C 85 16 132/68 96 Room Air 03/13/23 07:33 36.7 C 85 16 135/69 96 Room Air all noted and reviewed including below
--- NOTE | 2023-03-13 19:59 | Electrocardiogram Report ---
Test Reason : Blood Pressure : / mmHG Vent. Rate : 085 BPM Atrial Rate : 085 BPM P-R Int : 140 ms QRS Dur : 134 ms QT Int : 404 ms P-R-T Axes : 014 090 005 degrees QTc Int : 480 ms Sinus rhythm with occasional Premature ventricular complexes Right bundle branch block Inferior infarct , age undetermined Abnormal ECG No previous ECGs available Confirmed by Willian Webb ([id number]) on 03/13/2023 7:58:59 PM Referred By: REFERRED SELF Confirmed By:Allan Webb
[2023-03-13] MEDS: LATANOPROST 0.005% OP SOLN 2.5 ML BTL OPB SCH (20:45)
[2023-03-14] MEDS: traMADol HCL 50 MG TABLET PO SCH ×3 (01:34→17:23)
[2023-03-14] MEDS: LEVOTHYROXINE SODIUM 25 MCG TABLET PO SCH (06:45)
[2023-03-14] MEDS: ACETAMINOPHEN 500 MG TAB PO SCH ×3 (06:45→20:43)
[2023-03-14] MEDS: INSULIN ASPART PER UNIT CHARGE SC SCH ×4 (08:33→20:44)
[2023-03-14] MEDS: FAMOTIDINE 40 MG TABLET PO SCH (08:34)
[2023-03-14] MEDS: MAGNESIUM OXIDE 400 MG TAB PO SCH (08:34)
[2023-03-14] MEDS: PANTOprazole 40 MG TAB PO SCH (08:34)
[2023-03-14] MEDS: CLOPIDOGREL BISULFATE 75 MG TAB PO SCH (08:34)
[2023-03-14] MEDS: FLUTICASONE FUROATE 100MCG 14 PUFFS/INHALER INH SCH (08:34)
[2023-03-14] MEDS: APIXABAN 2.5 MG TAB PO SCH ×2 (08:34→20:43)
[2023-03-14] MEDS: bisacodyL 5 MG TABEC PO SCH (08:38)
[2023-03-14 10:32] LABS: BUN Creatinine Ratio 28.8 (10-20); Calcium 9.3 mg/dl (8.6-10.3); Creatinine Clr Calc Pharmacy 35.4 ml/min; Est GFR (African American) 48.7 ml/min; Potassium 5.6 mmol/L (3.5-5.1)
--- NOTE | 2023-03-14 13:49 | Hospitalist Progress Note ---
Date of Service March 14, 2023 Assessment & Plan (1) Multiple falls: (2) Burst fracture of T12 vertebra: (3) Intractable back pain: Plan: - Admit to med surg - Consult ortho spine - Dr. Cheng -- pt reports hx of lumbar decompression fusion in lumbar spine 5-6 years ago by [place] ortho surgeon - Allow PT/OT at this time - Pain management with tylenol around the clock starting now, and tramadol prn, allow IV MS for breakthrough pain, bowel regimen ordered - Imaging including thoracic, lumbar CT and abdomen pelvis CT reviewed personally - Thoracic CT : T12 burst fracture with 60% loss of vertebral body height and 6 mm of retropulsion which results in moderate central canal stenosis. This fracture is likely subacute. No additional acute to subacute thoracic spine fractures. - Noted WBC of 11K could be reactive from recent course of steroids, pt reports having 3 days of steroid left, will hold until seen by ortho spine - Cont Eliquis and continue plavix with hx of AV valve replacement, unknown if this is mechanical valve, may require bridge with heparin if needs surgical procedure - - Make NPO after midnight in case needs for surgery 03/[address] Cheng Recommend placement of brace at this point Possible candidate for kyphoplasty if without improvement Continue scheduled tramadol and Tylenol for now PT and OT evaluation 03/14 Pain well-controlled For back brace placement today Continue pain control Continue PT and OT evaluation (4) WENDY (acute kidney injury): Plan: - Unknown creatinine baseline currently, Cr. 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 He reports just completing 36 sessions of cardiac rehab since August. - HIM records from cardiology results - AV valve replacement is unknown if mechanical at this time, see above regarding anticoagulation/antiplatelet - Consider echo, await to see if can be obtained from outpatient records - No signs of volume overload, if anything he appears dry today with possible WENDY No cardiac symptoms Monitor closely (7) Diabetes: Plan: - ISS with Accu-Cheks ACHS -Check A1c with a.m. labs -Glucose is 236 on admission, likely elevated secondary to steroid use BSG 127 - 161 Continue insulin sliding scale (8) Hypothyroidism: Plan: - Cont levothyroxine po (9) GERD (gastroesophageal reflux disease): Plan: - Hx of use of hycosamine abdominal discomfort DVT ppx: teds, scds. anticoagulation as above CODE: FULL Dispo: PT and OT evaluation Admission and Anticipated Discharge Date Admission Date: March 12, 2023 Subjective ff up for back pain, etc seen resting in bed, comfortable States he feels fine overall Back pain improving No focal weakness or numbness No other new symptom Review of Systems Review of Systems: all noted and negative except for above Physical Exam Physical Exam: General- oriented x 3, not in distress, speaks in sentences with no effort or accessory muscle use Eyes- anicteric Neck- no JVD Lungs- clear breath sounds BL Heart- normal rate, regular rhythm; no murmurs Abdomen- normal bowel sounds, nondistended, soft, No tenderness Extremities- no pretibial edema, no calf tenderness Neuro- alert, oriented x 3; no gross focal neurologic deficits Skin- warm & dry Results & Data Results & Data Vital Signs (Past 12 Hours) Vital Signs Temp Pulse Resp BP Pulse Ox O2 Del Method 03/14/23 07:14 36.5 C 95 H 16 145/87 H 95 Room Air all noted and reviewed including below
[2023-03-14] MEDS: LATANOPROST 0.005% OP SOLN 2.5 ML BTL OPB SCH (20:43)
[2023-03-15] MEDS: traMADol HCL 50 MG TABLET PO SCH ×2 (01:44→10:42)
[2023-03-15] MEDS: ACETAMINOPHEN 500 MG TAB PO SCH ×3 (05:18→21:04)
[2023-03-15] MEDS: LEVOTHYROXINE SODIUM 25 MCG TABLET PO SCH (05:18)
[2023-03-15 07:19] LABS: BUN Creatinine Ratio 30.6 (10-20); Calcium 9.5 mg/dl (8.6-10.3); Creatinine Clr Calc Pharmacy 40.4 ml/min; Est GFR (African American) 57.2 ml/min; Est GFR (Non-African American) 49.3 ml/min; Potassium 5.6 mmol/L (3.5-5.1)
[2023-03-15] MEDS: INSULIN ASPART PER UNIT CHARGE SC SCH ×4 (08:23→21:04)
[2023-03-15] MEDS: FAMOTIDINE 40 MG TABLET PO SCH (08:27)
[2023-03-15] MEDS: APIXABAN 2.5 MG TAB PO SCH ×2 (08:27→21:03)
[2023-03-15] MEDS: CLOPIDOGREL BISULFATE 75 MG TAB PO SCH (08:27)
[2023-03-15] MEDS: PANTOprazole 40 MG TAB PO SCH (08:27)
[2023-03-15] MEDS: MAGNESIUM OXIDE 400 MG TAB PO SCH (08:27)
[2023-03-15] MEDS: FLUTICASONE FUROATE 100MCG 14 PUFFS/INHALER INH SCH (08:28)
[2023-03-15] MEDS: bisacodyL 5 MG TABEC PO SCH (08:29)
--- NOTE | 2023-03-15 17:45 | Hospitalist Progress Note ---
Date of Service March 15, 2023 Assessment & Plan (1) Multiple falls: (2) Burst fracture of T12 vertebra: (3) Intractable back pain: Plan: - Admit to med surg - Consult ortho spine - Dr. Cheng -- pt reports hx of lumbar decompression fusion in lumbar spine 5-6 years ago by [place] ortho surgeon - Allow PT/OT at this time - Pain management with tylenol around the clock starting now, and tramadol prn, allow IV MS for breakthrough pain, bowel regimen ordered - Imaging including thoracic, lumbar CT and abdomen pelvis CT reviewed personally - Thoracic CT : T12 burst fracture with 60% loss of vertebral body height and 6 mm of retropulsion which results in moderate central canal stenosis. This fracture is likely subacute. No additional acute to subacute thoracic spine fractures. - Noted WBC of 11K could be reactive from recent course of steroids, pt reports having 3 days of steroid left, will hold until seen by ortho spine - Cont Eliquis and continue plavix with hx of AV valve replacement, unknown if this is mechanical valve, may require bridge with heparin if needs surgical procedure - - Make NPO after midnight in case needs for surgery 03/[address] Cheng Recommend placement of brace at this point Possible candidate for kyphoplasty if without improvement Continue scheduled tramadol and Tylenol for now PT and OT evaluation 03/14 Pain well-controlled For back brace placement today Continue pain control Continue PT and OT evaluation 03/15 pain well controlled tolerating brace well change Tramadol to PRN to avoid confusion continue PT/OT evaluation (4) WENDY (acute kidney injury): Plan: - Unknown creatinine baseline currently, Cr. 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 He reports just completing 36 sessions of cardiac rehab since August. - HIM records from cardiology results - AV valve replacement is unknown if mechanical at this time, see above regarding anticoagulation/antiplatelet - Consider echo, await to see if can be obtained from outpatient records - No signs of volume overload, if anything he appears dry today with possible WENDY No cardiac symptoms Monitor closely (7) Diabetes: Plan: - ISS with Accu-Cheks ACHS -Check A1c with a.m. labs -Glucose is 236 on admission, likely elevated secondary to steroid use BSG 135 Continue insulin sliding scale (8) Hypothyroidism: Plan: - Cont levothyroxine po (9) GERD (gastroesophageal reflux disease): Plan: - Hx of use of hycosamine abdominal discomfort DVT ppx: teds, scds. anticoagulation as above CODE: FULL Dispo: PT and OT evaluation- recommending acute rehab Admission and Anticipated Discharge Date Admission Date: March 12, 2023 Subjective ff up for T12 burst fracture, etc seen resting in bed, comfortable states he feels fine overall back pain well controlled no chest pain, dyspnea, palpitations, dizziness noticed by RN that patient was intermittently confused, also almost fell backwards at the bathroom no other new symptoms Review of Systems Review of Systems: all noted and negative except for above Physical Exam Physical Exam: General- oriented x 3, not in distress, speaks in sentences with no effort or accessory muscle use Eyes- anicteric Neck- no JVD Lungs- clear breath sounds bilaterally, no rales/wheezes Heart- normal rate, regular rhythm; no murmurs Abdomen- normal bowel sounds, nondistended, soft, nontender Extremities- no pretibial edema, no calf tenderness Neuro- alert, oriented x 3; no gross focal neurologic deficits Skin- warm & dry Results & Data Results & Data Vital Signs (Past 12 Hours) Vital Signs Temp Pulse Resp BP Pulse Ox O2 Del Method 03/15/23 15:19 36.2 C L 72 16 111/82 93 Room Air 03/15/23 07:52 36.4 C L 84 16 130/72 96 Room Air all noted and reviewed including below
[2023-03-15] MEDS: LATANOPROST 0.005% OP SOLN 2.5 ML BTL OPB SCH (21:03)
[2023-03-16] MEDS: ACETAMINOPHEN 500 MG TAB PO SCH ×3 (04:55→21:04)
[2023-03-16] MEDS: LEVOTHYROXINE SODIUM 25 MCG TABLET PO SCH (04:56)
[2023-03-16] MEDS: INSULIN ASPART PER UNIT CHARGE SC SCH ×4 (08:44→20:21)
[2023-03-16] MEDS: CLOPIDOGREL BISULFATE 75 MG TAB PO SCH (08:56)
[2023-03-16] MEDS: MAGNESIUM OXIDE 400 MG TAB PO SCH (08:56)
[2023-03-16] MEDS: PANTOprazole 40 MG TAB PO SCH (08:56)
[2023-03-16] MEDS: FAMOTIDINE 40 MG TABLET PO SCH (08:56)
[2023-03-16] MEDS: APIXABAN 2.5 MG TAB PO SCH ×2 (08:56→19:46)
[2023-03-16] MEDS: bisacodyL 5 MG TABEC PO SCH (08:56)
[2023-03-16] MEDS: FLUTICASONE FUROATE 100MCG 14 PUFFS/INHALER INH SCH (08:57)
[2023-03-16 10:05] LABS: BUN Creatinine Ratio 29.3 (10-20); Calcium 9.2 mg/dl (8.6-10.3); Creatinine Clr Calc Pharmacy 40.7 ml/min; Est GFR (African American) 57.7 ml/min; Est GFR (Non-African American) 49.8 ml/min; Potassium 4.9 mmol/L (3.5-5.1)
--- NOTE | 2023-03-16 15:23 | Hospitalist Progress Note ---
Date of Service March 16, 2023 Assessment & Plan (1) Multiple falls: (2) Burst fracture of T12 vertebra: (3) Intractable back pain: Plan: - Admit to med surg - Consult ortho spine - Dr. Cheng -- pt reports hx of lumbar decompression fusion in lumbar spine 5-6 years ago by [place] ortho surgeon - Allow PT/OT at this time - Pain management with tylenol around the clock starting now, and tramadol prn, allow IV MS for breakthrough pain, bowel regimen ordered - Imaging including thoracic, lumbar CT and abdomen pelvis CT reviewed personally - Thoracic CT : T12 burst fracture with 60% loss of vertebral body height and 6 mm of retropulsion which results in moderate central canal stenosis. This fracture is likely subacute. No additional acute to subacute thoracic spine fractures. - Noted WBC of 11K could be reactive from recent course of steroids, pt reports having 3 days of steroid left, will hold until seen by ortho spine - Cont Eliquis and continue plavix with hx of AV valve replacement, unknown if this is mechanical valve, may require bridge with heparin if needs surgical procedure - - Make NPO after midnight in case needs for surgery 03/[address] Cheng Recommend placement of brace at this point Possible candidate for kyphoplasty if without improvement Continue scheduled tramadol and Tylenol for now PT and OT evaluation 03/14 Pain well-controlled For back brace placement today Continue pain control Continue PT and OT evaluation 03/15 pain well controlled tolerating brace well change Tramadol to PRN to avoid confusion continue PT/OT evaluation 03/16 Back pain feels much better Tolerating brace Continue tramadol as needed, PT and OT recommending transition to acute rehab Patient is agreeable (4) WENDY (acute kidney injury): Plan: - Unknown creatinine baseline currently, Cr. 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 He reports just completing 36 sessions of cardiac rehab since August. - HIM records from cardiology results - AV valve replacement is unknown if mechanical at this time, see above regarding anticoagulation/antiplatelet - Consider echo, await to see if can be obtained from outpatient records - No signs of volume overload, if anything he appears dry today with possible WENDY No cardiac symptoms Monitor closely (7) Diabetes: Plan: - ISS with Accu-Cheks ACHS -Check A1c with a.m. labs -Glucose is 236 on admission, likely elevated secondary to steroid use BSG 230 Continue insulin sliding scale (8) Hypothyroidism: Plan: - Cont levothyroxine po (9) GERD (gastroesophageal reflux disease): Plan: - Hx of use of hycosamine abdominal discomfort DVT ppx: teds, scds. anticoagulation as above CODE: FULL Dispo: PT and OT evaluation- recommending acute rehab Admission and Anticipated Discharge Date Admission Date: March 12, 2023 Subjective Follow-up for T12 burst fracture, etc. Seen resting in bed, in good spirits Comfortable, not in distress States back pain continues to feel improved Pain well-controlled, minimal to none Reports nasal congestion, drainage and left maxillary sinus pressure No cough, shortness of breath No other new symptoms Review of Systems Review of Systems: all noted and negative except for above Physical Exam Physical Exam: General- oriented x 3, not in distress, speaks in sentences with no effort or accessory muscle use Nose-mild hyperemia No maxillary tenderness Eyes- anicteric Neck- no JVD Lungs- clear breath sounds bilaterally, no rales/wheezes Heart- normal rate, regular rhythm; no murmurs Abdomen- normal bowel sounds, nondistended, soft, nontender Extremities- no pretibial edema, no calf tenderness Neuro- alert, oriented x 3; no gross focal neurologic deficits Skin- warm & dry Results & Data Results & Data Vital Signs (Past 12 Hours) Vital Signs Temp Pulse Resp BP Pulse Ox O2 Del Method 03/16/23 07:38 36.4 C L 86 16 133/83 97 Room Air all noted and reviewed including below
[2023-03-16] MEDS: FLUTICASONE PROPIONATE NA SPR 16 GM BTL SCH (16:59)
[2023-03-16] MEDS: DOXYCYCLINE HYCLATE 100 MG CAP PO SCH (16:59)
[2023-03-16] MEDS: LATANOPROST 0.005% OP SOLN 2.5 ML BTL OPB SCH (19:46)
[2023-03-17] MEDS: DOXYCYCLINE HYCLATE 100 MG CAP PO SCH ×2 (03:27→15:17)
[2023-03-17] MEDS: LEVOTHYROXINE SODIUM 25 MCG TABLET PO SCH (04:48)
[2023-03-17] MEDS: ACETAMINOPHEN 500 MG TAB PO SCH ×3 (04:48→22:20)
[2023-03-17 07:07] LABS: BUN Creatinine Ratio 28.1 (10-20); Calcium 9.4 mg/dl (8.6-10.3); Creatinine Clr Calc Pharmacy 42.3 ml/min; Est GFR (African American) 60.4 ml/min; Est GFR (Non-African American) 52.1 ml/min; Potassium 4.6 mmol/L (3.5-5.1)
[2023-03-17] MEDS: APIXABAN 2.5 MG TAB PO SCH ×2 (07:47→20:27)
[2023-03-17] MEDS: MAGNESIUM OXIDE 400 MG TAB PO SCH (07:47)
[2023-03-17] MEDS: CLOPIDOGREL BISULFATE 75 MG TAB PO SCH (07:47)
[2023-03-17] MEDS: FLUTICASONE PROPIONATE NA SPR 16 GM BTL SCH (07:48)
[2023-03-17] MEDS: FLUTICASONE FUROATE 100MCG 14 PUFFS/INHALER INH SCH (07:48)
[2023-03-17] MEDS: FAMOTIDINE 40 MG TABLET PO SCH (07:48)
[2023-03-17] MEDS: bisacodyL 5 MG TABEC PO SCH (07:49)
[2023-03-17] MEDS: PANTOprazole 40 MG TAB PO SCH (07:49)
[2023-03-17] MEDS: INSULIN ASPART PER UNIT CHARGE SC SCH ×4 (07:54→20:44)
--- NOTE | 2023-03-17 15:57 | Hospitalist Progress Note ---
Date of Service March 17, 2023 Assessment & Plan (1) Multiple falls: (2) Burst fracture of T12 vertebra: (3) Intractable back pain: Plan: - Admit to med surg - Consult ortho spine - Dr. Cheng -- pt reports hx of lumbar decompression fusion in lumbar spine 5-6 years ago by [place] ortho surgeon - Allow PT/OT at this time - Pain management with tylenol around the clock starting now, and tramadol prn, allow IV MS for breakthrough pain, bowel regimen ordered - Imaging including thoracic, lumbar CT and abdomen pelvis CT reviewed personally - Thoracic CT : T12 burst fracture with 60% loss of vertebral body height and 6 mm of retropulsion which results in moderate central canal stenosis. This fracture is likely subacute. No additional acute to subacute thoracic spine fractures. - Noted WBC of 11K could be reactive from recent course of steroids, pt reports having 3 days of steroid left, will hold until seen by ortho spine - Cont Eliquis and continue plavix with hx of AV valve replacement, unknown if this is mechanical valve, may require bridge with heparin if needs surgical procedure - - Make NPO after midnight in case needs for surgery 03/[address] Cheng Recommend placement of brace at this point Possible candidate for kyphoplasty if without improvement Continue scheduled tramadol and Tylenol for now PT and OT evaluation 03/14 Pain well-controlled For back brace placement today Continue pain control Continue PT and OT evaluation 03/15 pain well controlled tolerating brace well change Tramadol to PRN to avoid confusion continue PT/OT evaluation 03/17 stable overall Back pain feels much better Tolerating brace Continue tramadol as needed, PT and OT recommending transition to acute rehab Patient prefers to go home (4) WENDY (acute kidney injury): Plan: - Unknown creatinine baseline currently, Cr. 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 He reports just completing 36 sessions of cardiac rehab since August. - HIM records from cardiology results - AV valve replacement is unknown if mechanical at this time, see above regarding anticoagulation/antiplatelet - Consider echo, await to see if can be obtained from outpatient records - No signs of volume overload, if anything he appears dry today with possible WENDY No cardiac symptoms Monitor closely (7) Diabetes: Plan: - ISS with Accu-Cheks ACHS -Check A1c with a.m. labs -Glucose is 236 on admission, likely elevated secondary to steroid use BSG 146 Continue insulin sliding scale (8) Hypothyroidism: Plan: - Cont levothyroxine po (9) GERD (gastroesophageal reflux disease): Plan: - Hx of use of hycosamine abdominal discomfort DVT ppx: teds, scds. anticoagulation as above CODE: FULL Dispo: PT and OT evaluation- recommending acute rehab Admission and Anticipated Discharge Date Admission Date: March 12, 2023 Subjective ff up for t12 fracture, etc seen resting in bed comfortable nasal congestion improving, as well as nasal drainage back pain well controlled, minimal to none no other new symptoms Review of Systems Review of Systems: all noted and negative except for above Physical Exam Physical Exam: General- oriented x 3, not in distress, speaks in sentences with no effort or accessory muscle use Eyes- anicteric Neck- no JVD Lungs- clear breath sounds bilaterally, no crackles/wheezing Heart- normal rate, irreg irregular rhythm; no murmurs Abdomen- normal bowel sounds, nondistended, soft, nontender Extremities- no pretibial edema, no calf tenderness Neuro- alert, oriented x 3; no gross focal neurologic deficits Skin- warm & dry Results & Data Results & Data Vital Signs (Past 12 Hours) Vital Signs Temp Pulse Resp BP Pulse Ox O2 Del Method 03/17/23 14:11 36.4 C L 87 16 142/74 H 96 Room Air 03/17/23 07:21 36.4 C L 80 16 145/75 H 99 Room Air all noted and reviewed including below
[2023-03-17] MEDS: LATANOPROST 0.005% OP SOLN 2.5 ML BTL OPB SCH (20:28)
[2023-03-18] MEDS: DOXYCYCLINE HYCLATE 100 MG CAP PO SCH ×2 (02:19→15:47)
[2023-03-18] MEDS: LEVOTHYROXINE SODIUM 25 MCG TABLET PO SCH (04:59)
[2023-03-18] MEDS: ACETAMINOPHEN 500 MG TAB PO SCH ×3 (05:00→20:50)
[2023-03-18] MEDS: INSULIN ASPART PER UNIT CHARGE SC SCH ×4 (08:56→20:41)
[2023-03-18] MEDS: PANTOprazole 40 MG TAB PO SCH (08:57)
[2023-03-18] MEDS: CLOPIDOGREL BISULFATE 75 MG TAB PO SCH (08:57)
[2023-03-18] MEDS: FLUTICASONE FUROATE 100MCG 14 PUFFS/INHALER INH SCH (08:57)
[2023-03-18] MEDS: FAMOTIDINE 40 MG TABLET PO SCH (08:57)
[2023-03-18] MEDS: MAGNESIUM OXIDE 400 MG TAB PO SCH (08:57)
[2023-03-18] MEDS: APIXABAN 2.5 MG TAB PO SCH ×2 (08:57→20:51)
[2023-03-18] MEDS: FLUTICASONE PROPIONATE NA SPR 16 GM BTL SCH (08:58)
[2023-03-18] MEDS: bisacodyL 5 MG TABEC PO SCH (09:02)
--- NOTE | 2023-03-18 12:18 | Hospitalist Progress Note ---
Date of Service March 18, 2023 Assessment & Plan (1) Multiple falls: (2) Burst fracture of T12 vertebra: (3) Acute sinusitis: Plan: nasal congestion, drainage improving continue Doxycycline Day 3/, Flonase will need outpatient ENT referral for changes in voice/weak voice noted for the past few weeks (4) Intractable back pain: Plan: - Consult ortho spine - Dr. Cheng -- pt reports hx of lumbar decompression fusion in lumbar spine 5-6 years ago by [place] ortho surgeon - Imaging including thoracic, lumbar CT and abdomen pelvis CT reviewed personally - Thoracic CT : T12 burst fracture with 60% loss of vertebral body height and 6 mm of retropulsion which results in moderate central canal stenosis. This fracture is likely subacute. No additional acute to subacute thoracic spine fractures. 03/[address] Cheng Recommend placement of brace at this point Possible candidate for kyphoplasty if without improvement given scheduled tramadol and Tylenol stable overall Back pain feels much better Tolerating brace well Continue scheduled Tylenol, and tramadol as needed PT and OT recommending transition to acute rehab Patient agreeable now to go to acute rehab (5) WENDY (acute kidney injury): Plan: - Unknown creatinine baseline currently, Cr. 1.78 and BUN 50 Creatinine 1.5--> 1.3 likely his baseline Encourage oral fluid intake (6) Hyperkalemia: Plan: - Noted to be 5.5 on admission Potassium now 4.6--> 5.6--> 4.6 asymptomatic low potassium diet started, K normal so far monitor (7) Heart disease: Plan: - Patient is status post AV replacement on 09/[address] [facility], 3 cardiac stents placed in May 2022, follows with [facility] cardiology in [place]. He reports just completing 36 sessions of cardiac rehab since August. - HIM records from cardiology results - AV valve replacement is unknown if mechanical at this time, see above regarding anticoagulation/antiplatelet - No signs of volume overload No cardiac symptoms continue Eliquis, Plavix Monitor closely (8) Diabetes: Plan: - ISS with Accu-Cheks ACHS -Check A1c with a.m. labs -Glucose is 236 on admission, likely elevated secondary to steroid use BSG 140-160s Continue insulin sliding scale (9) Hypothyroidism: Plan: - Cont levothyroxine po (10) GERD (gastroesophageal reflux disease): Plan: - Hx of use of hycosamine abdominal discomfort DVT ppx: teds, scds. anticoagulation as above CODE: FULL Dispo: PT and OT evaluation- recommending acute rehab, awaiting acceptance Admission and Anticipated Discharge Date Admission Date: March 12, 2023 Subjective ff up for t12 fracture, s/p fall, etc seen resting in chair comfortable states he feels fine overall back pain well controlled with scheduled tylenol no chest pain, dyspnea, palpitations, dizziness nasal congestion, drainage improving no cough, fever no other new symptoms Review of Systems Review of Systems: all noted and negative except for above Physical Exam Physical Exam: General- oriented x 3, not in distress, speaks in sentences with no effort or accessory muscle use Eyes- anicteric Neck- no JVD Lungs- clear breath sounds bilaterally, no crackles, no wheezing Heart- normal rate, regular rhythm; no murmurs Abdomen- normal bowel sounds, nondistended, soft, no tenderness Extremities- no pretibial edema, no calf tenderness Neuro- alert, oriented x 3; no gross focal neurologic deficits Skin- warm & dry Results & Data Results & Data Vital Signs (Past 12 Hours) Vital Signs Temp Pulse Resp BP Pulse Ox O2 Del Method 03/18/23 07:40 Room Air 03/18/23 07:09 36.3 C L 84 16 144/94 H 97 Room Air
[2023-03-18] MEDS: LATANOPROST 0.005% OP SOLN 2.5 ML BTL OPB SCH (20:51)
[2023-03-19] MEDS: DOXYCYCLINE HYCLATE 100 MG CAP PO SCH ×2 (05:49→14:48)
[2023-03-19] MEDS: ACETAMINOPHEN 500 MG TAB PO SCH ×3 (05:50→20:34)
[2023-03-19] MEDS: LEVOTHYROXINE SODIUM 25 MCG TABLET PO SCH (05:50)
[2023-03-19] MEDS: traMADol HCL 50 MG TABLET PO PRN ×2 (08:21→17:52)
[2023-03-19] MEDS: INSULIN ASPART PER UNIT CHARGE SC SCH ×4 (08:22→20:35)
[2023-03-19] MEDS: FAMOTIDINE 40 MG TABLET PO SCH (08:23)
[2023-03-19] MEDS: MAGNESIUM OXIDE 400 MG TAB PO SCH (08:23)
[2023-03-19] MEDS: CLOPIDOGREL BISULFATE 75 MG TAB PO SCH (08:24)
[2023-03-19] MEDS: FLUTICASONE PROPIONATE NA SPR 16 GM BTL SCH (08:24)
[2023-03-19] MEDS: PANTOprazole 40 MG TAB PO SCH (08:24)
[2023-03-19] MEDS: APIXABAN 2.5 MG TAB PO SCH ×2 (08:25→20:34)
[2023-03-19] MEDS: FLUTICASONE FUROATE 100MCG 14 PUFFS/INHALER INH SCH (08:25)
[2023-03-19] MEDS: bisacodyL 5 MG TABEC PO SCH (10:09)
--- NOTE | 2023-03-19 13:08 | CT Scan Report ---
HEAD CT NONCONTRAST CT DOSE: HISTORY: hoarseness, weak cough, dysphagia TECHNIQUE: Multiaxial CT images of the head were performed without the use of intravenous contrast. A utomated exposure control was utilized for this study. A dose lowering technique was utilized adheri ng to the principles of ALARA. Comparison: None. Findings: The paranasal sinuses and mastoid air cells are clear. The calvarium and skull base are int act. There is no mass, hematoma, midline shift, acute infarct. White matter hypodensity is nonspecifi c but suggestive of microvascular ischemic change. The ventricles and sulci demonstrate mild age-rela jessica involutional changes. Impression: No acute intracranial abnormality. Atrophy and microvascular ischemic changes. ACT 112: Negative or not required by law. Electronically signed by: Patrice Kunz M.D. 03/19/2023 1:06 PM
--- NOTE | 2023-03-19 13:29 | CT Scan Report ---
CT soft tissue neck wo con CLINICAL HISTORY: hoarsness, dysphagia, weak cough Technique: Axial CT images of the soft tissues of the neck were obtained following intravenous admini stration of 100 cc of Omnipaque 300. Automated dose lowering techniques and/or adjustment according t o patient size were utilized for this exam. Comparison: None available at the time of this dictation. Findings: There are no masses or inflammatory changes seen within the soft tissues of the neck. The oropharynx, hypopharynx, larynx, and trachea are patent. No enlarged lymph nodes are seen. The parotid glands, s ubmandibular glands, and thyroid gland are unremarkable. Imaged portions of the brain parenchyma are unremarkable. The paranasal sinuses and mastoid air cell s are normal in appearance. Impression: No acute abnormality is seen. ACT 112: Negative or not required by law. Electronically signed by: Marc Shah M.D. 03/19/2023 1:27 PM
--- NOTE | 2023-03-19 15:22 | Hospitalist Progress Note ---
Date of Service March 19, 2023 Assessment & Plan (1) Multiple falls: (2) Burst fracture of T12 vertebra: (3) Acute sinusitis: (4) Intractable back pain: (5) WENDY (acute kidney injury): (6) Hyperkalemia: (7) Heart disease: (8) Diabetes: (9) Hypothyroidism: (10) GERD (gastroesophageal reflux disease): Plan Mr. Monteiro 82-year-old male with PMHx of multiple falls, CAD s/p 3 cardiac stents in May 2022, AV replacement 08/20/22 at [facility], recently completing cardiac rehab as an outpatient, hx of lumbar decompression fusion of L1-L5 about 5-6 years ago in [place], HTN, HLD, DM type II, GERD and hypothyroidism who presented to the ER on 03/12 with mid to lower back pain which has been ongoing for the past 2.5 weeks after sustaining a fall. Patient found to have burst fracture of T12. Patient's course prolonged for rehab placement; however, notable concern from patient regarding progressive dysphagia. Speech noted patient to have severe oropharyngeal dysphagia without any prior history of neurologic concerns. #Mechanical Fall #Acute Burst Fracture T12 pt reports hx of lumbar decompression fusion in lumbar spine 5-6 years ago by [place] ortho surgeon - Imaging including thoracic, lumbar CT and abdomen pelvis CT reviewed personally - Thoracic CT : T12 burst fracture with 60% loss of vertebral body height and 6 mm of retropulsion which results in moderate central canal stenosis. This fracture is likely subacute. No additional acute to subacute thoracic spine fractures. Evaluated by Dr. Cheng 03/13, plan for brace while ambulating Consideration of future kyphoplasty Continue scheduled Tylenol, and tramadol as needed PT and OT recommending transition to acute rehab #Oropharyngeal Dysphagia #Weak cough Patient reports 2 weeks of weakening cough and difficulty swallowing; declines any neuro history Voice with low intensity, garbled speech Speech consulted today: -Significant dysphagia and aspiration -Diet minced and moist, with mildly thick nectar -CT head and neck ordered to assess for soft issue lesions or notable lesion contributing to symptoms -Unremarkable -Consult neurology for further recommendations of notable dysphagia #Acute sinusitis nasal congestion, drainage improving continue Doxycycline Day 4/7, Flonase #WENDY *resolved - Unknown creatinine baseline currently, Cr. 1.78 and BUN 50 Creatinine 1.5--> 1.3 likely his baseline Encourage oral fluid intake #Hyperkalemia - Noted to be 5.5 on admission Potassium now 4.6--> 5.6--> 4.6 asymptomatic low potassium diet started, K normal so far Repeat BMP in am for K trend #Obstructive CAD s/p 3 stents #AV replacement - Patient is status post AV replacement on 09/08 in [facility], 3 cardiac stents placed in May 2022, follows with [facility] cardiology in [place]. He reports just completing 36 sessions of cardiac rehab since August. - HIM records from cardiology results pending - AV valve replacement is unknown if mechanical at this time, see above regarding anticoagulation/antiplatelet - No signs of volume overload No cardiac symptoms continue Eliquis, Plavix Monitor closely #Diabetes Mellitus - ISS with Accu-Cheks ACHS -A1c 6.7% , goal for age -Glucose is 236 on admission, likely elevated secondary to steroid use BSG 140-160s Continue insulin sliding scale #Hypothyroidism - Cont levothyroxine po #GERD - Hx of use of hycosamine abdominal discomfort DVT ppx: teds, scds. anticoagulation as above CODE: FULL Dispo: PT and OT evaluation- recommending acute rehab, awaiting acceptance; Neuro eval given dysphagia Admission and Anticipated Discharge Date Admission Date: March 12, 2023 Subjective NAEO Reports feeling well and pain free Notes that his speech and voice intensity are bothering him, he feels like he must strain to be heard. He also reports coughing while eating often, but otherwise states he "gets through it" Agreeable for evaluation while admitted Physical Exam Constitutional: WD/WN, vitals as above (low voice, garbled speech sounds like he is "underwater" almost ) Respiratory: normal respiratory effort, lungs clear to auscultation no crackles or wheezing Cardiovascular: RRR, no murmur, no edema Gastrointestinal (Abdomen): normal bowel sounds, soft, nontender, no hepatosplenomegaly Neurologic: PERRL, EOMI, accommodation nl, no face palsy, no dysarthria soft/low voice intensity, otherwise no focal deficits Results & Data Results & Data Vital Signs (Past 12 Hours) Vital Signs Temp Pulse Resp BP BP Pulse Ox O2 Del Method 03/19/23 14:32 36.5 C 88 16 117/70 98 Room Air 01/31/24 07:49 Room Air 03/19/23 07:29 36.4 C L 89 16 167/74 H 94 Room Air Diagnostic Findings CLINICAL HISTORY: hoarsness, dysphagia, weak cough Technique: Axial CT images of the soft tissues of the neck were obtained following intravenous administration of 100 cc of Omnipaque 300. Automated dose lowering techniques and/or adjustment according to patient size were utilized for this exam. Comparison: None available at the time of this dictation. Findings: There are no masses or inflammatory changes seen within the soft tissues of the neck. The oropharynx, hypopharynx, larynx, and trachea are patent. No enlarged lymph nodes are seen. The parotid glands, submandibular glands, and thyroid gland are unremarkable. Imaged portions of the brain parenchyma are unremarkable. The paranasal sinuses and mastoid air cells are normal in appearance. Impression: No acute abnormality is seen. Medications Administered Home Medications Medication Instructions Recorded Confirmed Last Taken apixaban 2.5 mg tablet (Eliquis) 2.5 mg PO BID 03/12/23 03/12/23 03/12/23 am clopidogrel 75 mg tablet 75 mg PO DAILY 03/12/23 03/12/23 Unknown empagliflozin 10 mg tablet 10 mg PO QAM 03/12/23 03/12/23 03/12/23 (Jardiance) ezetimibe 10 mg tablet 10 mg PO QAM 03/12/23 03/12/23 03/12/23 famotidine 40 mg tablet 40 mg PO QAM 03/12/23 03/12/23 Unknown fluticasone propionate 110 2 puff inhalation BID 03/12/23 03/12/23 Unknown mcg/actuation HFA aerosol inhaler hyoscyamine sulfate 0.125 mg tablet 0.125 mg PO TID PRN Abdominal 03/12/23 03/12/23 Unknown Discomfort latanoprost 0.005 % eye drops 1 drp OPB QPM 03/12/23 03/12/23 03/11/23 levothyroxine 25 mcg tablet 25 mcg PO DAILYBB 03/12/23 03/12/23 03/12/23 [id number]-wvqxujce-ucfoifx 2 - 3 cap PO WM 03/12/23 03/12/23 Unknown 24,000-76,000-120,000 unit capsule,delayed rel (Creon) magnesium oxide 400 mg (241.3 mg 400 mg PO QAM 03/12/23 03/12/23 03/12/23 magnesium) tablet metformin 1,000 mg tablet 1,000 mg PO BID 03/12/23 03/12/23 03/12/23 pantoprazole 20 mg tablet,delayed 20 mg PO QAM 03/12/23 03/12/23 03/12/23 release prednisone 10 mg tablet See Rx Instructions .Route .COMPLEX 03/12/23 03/12/23 Unknown Active Medications Generic Name Dose Route Start Last Admin Trade Name Eliazar PRN Reason Stop Dose Admin Acetaminophen 1,000 mg 03/13/23 06:00 03/19/23 14:47 Acetaminophen 500 Mg Tab PO 04/12/23 05:59 1,000 mg Q8H KUSH Administration Apixaban 2.5 mg 03/12/23 21:00 03/19/23 08:25 Apixaban 2.5 Mg Tab PO 04/11/23 20:59 2.5 mg BID KUSH Administration Bisacodyl 10 mg 03/13/23 09:00 03/19/23 10:09 Bisacodyl 5 Mg Tabec PO 04/12/23 08:59 10 mg DAILY KUSH Administration Clopidogrel Bisulfate 75 mg 03/13/23 09:00 03/19/23 08:24 Clopidogrel Bisulfate 75 Mg Tab PO 04/12/23 08:59 75 mg DAILY KUSH Administration Doxycycline Hyclate 100 mg 03/16/23 15:30 03/19/23 14:48 Doxycycline Hyclate 100 Mg Cap PO 03/26/23 15:29 100 mg Q12H KUSH Administration Famotidine 40 mg 03/13/23 09:00 03/19/23 08:23 Famotidine 40 Mg Tablet PO 04/12/23 08:59 40 mg QAM KUSH Administration Fluticasone Furoate 1 puffs 03/13/23 09:00 03/19/23 08:25 Fluticasone Furoate 100mcg 14 Puffs/Inhaler INH 04/12/23 08:59 1 puffs DAILY KUSH Administration Fluticasone Propionate 2 sprays 03/16/23 15:30 03/19/23 08:24 Fluticasone Propionate Na Spr 16 Gm Btl NA 04/15/23 15:29 2 sprays DAILY KUSH Administration Insulin Aspart 0 units 03/13/23 11:30 03/19/23 12:12 Insulin Aspart Per Unit Charge SC 04/12/23 05:59 6 units ACHS KUSH Administration Latanoprost 1 drops 03/12/23 21:00 03/18/23 20:51 Latanoprost 0.005% Op Soln 2.5 Ml Btl OPB 04/11/23 20:59 1 drops QPM KUSH Administration Levothyroxine Sodium 25 mcg 03/13/23 06:30 03/19/23 05:50 Levothyroxine Sodium 25 Mcg Tablet PO 04/12/23 06:29 25 mcg DAILYBB KUSH Administration Magnesium Oxide 400 mg 03/13/23 09:00 03/19/23 08:23 Magnesium Oxide 400 Mg Tab PO 04/12/23 08:59 400 mg QAM KUSH Administration Miscellaneous 1 each 03/13/23 00:00 03/19/23 08:26 Creon--Order Awaiting Action N/A 04/12/23 00:00 Not Given QS KUSH Pantoprazole Sodium 40 mg 03/13/23 09:00 03/19/23 08:24 Pantoprazole 40 Mg Tab PO 04/12/23 08:59 40 mg QAM KUSH Administration Tramadol HCl 50 mg 03/15/23 17:40 03/19/23 08:21 Tramadol Hcl 50 Mg Tablet PO 04/12/23 01:59 50 mg Q8H PRN Administration Moderate Pain (Scale 4, 5, 6)
--- NOTE | 2023-03-19 16:36 | Fluoroscopy Report ---
FL video swallow CLINICAL HISTORY: r/o aspiration TECHNIQUE: Video fluoroscopy of the pharyngeal region was performed as barium mixtures of varying con sistencies were administered to the patient by the speech pathologist. A formal esophagram was not pe rformed. Comparison: None available at the time of this dictation. FINDINGS: Total fluoroscopy time: 2.55 minutes. Radiation dose: 11.3 mGy. /Aspiration with delayed cough was seen with thin liquids. Upon aspiration was also seen with pudding consistency barium. Pooling of barium was noted in the bilateral piriform sinuses and valleculae. IMPRESSION: Aspiration was seen as above. Please see the speech pathology report for further details. ACT 112: Negative or not required by law. Electronically signed by: Marc Shah M.D. 03/19/2023 4:35 PM
[2023-03-19] MEDS: LATANOPROST 0.005% OP SOLN 2.5 ML BTL OPB SCH (20:34)
[2023-03-20] MEDS: DOXYCYCLINE HYCLATE 100 MG CAP PO SCH (03:43)
[2023-03-20] MEDS: traMADol HCL 50 MG TABLET PO PRN (03:45)
[2023-03-20] MEDS: ACETAMINOPHEN 500 MG TAB PO SCH (06:01)
[2023-03-20] MEDS: LEVOTHYROXINE SODIUM 25 MCG TABLET PO SCH (06:01)
[2023-03-20 07:03] LABS: Hematocrit (blood only) 44.6 % (42.0-52.0); Hemoglobin 14.4 g/dl (14.0-18.0); Mean Corpuscular Hemoglobin 30.1 pg (25.0-34.0); Mean Corpuscular Hgb Conc 32.3 g/dL (32.0-36.0); Mean Corpuscular Volume 93.1 fL (80.0-100.0); Mean Platelet Volume 11.5 fL (9.4-12.4); Platelet Count 305 K/uL (130-400); RDW Coefficient of Variation 15.7 % (11.5-14.5); RDW Standard Deviation 53.5 fL (36.4-46.3); Red Blood Count 4.79 M/uL (4.70-6.10); White Blood Count 8.99 K/ul (4.8-10.8)
[2023-03-20 07:36] LABS: BUN Creatinine Ratio 28.4 (10-20); Creatinine Clr Calc Pharmacy 46.7 ml/min; Est GFR (African American) 68.1 ml/min; Est GFR (Non-African American) 58.7 ml/min; Magnesium 1.6 mg/dl (1.7-2.4); Phosphorus 3.1 mg/dl (2.5-4.9); Potassium 4.2 mmol/L (3.5-5.1)
[2023-03-20] MEDS: MAGNESIUM SULFATE / D5W 1 GM/100 ML BAG IV SCH ×2 (08:21→10:14)
[2023-03-20] MEDS: FLUTICASONE FUROATE 100MCG 14 PUFFS/INHALER INH SCH (08:22)
[2023-03-20] MEDS: FLUTICASONE PROPIONATE NA SPR 16 GM BTL SCH (08:22)
[2023-03-20] MEDS: MAGNESIUM OXIDE 400 MG TAB PO SCH (08:23)
[2023-03-20] MEDS: FAMOTIDINE 40 MG TABLET PO SCH (08:23)
[2023-03-20] MEDS: APIXABAN 2.5 MG TAB PO SCH (08:23)
[2023-03-20] MEDS: PANTOprazole 40 MG TAB PO SCH (08:23)
[2023-03-20] MEDS: CLOPIDOGREL BISULFATE 75 MG TAB PO SCH (08:23)
[2023-03-20] MEDS: bisacodyL 5 MG TABEC PO SCH (08:26)
[2023-03-20] MEDS: INSULIN ASPART PER UNIT CHARGE SC SCH (08:27)
--- NOTE | 2023-03-20 11:23 | Discharge Summary ---
Discharge Summary Date of Service March 20, 2023 Notes For Next Care Provider Medication Changes From Visit -Tramadol 50mg q12 hours prn -Tylenol 1000mg q8h Admission HPI Per Admitting Provider This is an 82-year-old male with PMHx of multiple falls, CAD s/p 3 cardiac stents in May 2022, AV replacement 08/20/22 at [facility], recently completing cardiac rehab as an outpatient, hx of lumbar decompression fusion of L1-L5 about 5-6 years ago in [place], HTN, HLD, DM type II, GERD and hypothyroidism who presented to the ER with mid to lower back pain which has been ongoing for the past 2.5 weeks after sustaining a fall. He reports developing lower to mid back pain about 3 weeks ago which then caused him to have a mechanical fall 2 weeks ago, causing worsening pain, and then again fell about 5 days ago. He has been taking Tylenol for pain, but notes that minimal movement cause it to worsen. He had gone to the [place] [facility] and some type of imaging was completed, however he was not told that there was any type of new fracture. Then he saw his PCP who put him on a prednisone taper which she has 3 days left to complete. With worsening pain and frustration he presented here to [facility]. He denies any neurological symptoms, no loss of bowel or bladder dysfunction, no shocklike pain or numbness or tingling down into distal extremities. He reports having been taking all of his medications including Plavix and Eliquis 2.5 twice daily, last dose was this afternoon. He has multiple areas on his forearms which are bruised from recent falls. He notes he has been ambulating with a walker since then but prior to 3 weeks ago he was ambulating without assistive device. Patient states that he is eating and drinking without difficulty, no abdominal complaints, no nausea vomiting or diarrhea. He is making urine but states that he may be on a water pill. His manages his medications but she is currently driving home to [place]. Admission Exam Per Admitting Provider General: awake, alert, no apparent distress, thin white male Head: Normocephalic, atraumatic ENT: PERRL, EOMI, no pharyngeal exudate, mucous membranes moist, hoarse voice Chest: Clear to auscultation, on room air, no adventitious breath sounds Cardiac: Regular rate and rhythm, occasional PVC, no murmur, no JVD, normal peripheral pulses, good capillary refill Abdominal: NABS x 4 quadrants, soft, nondistended, nontender to palpation, no rebound or guarding Extremities: Multiple areas of ecchymosis over her forearms with several skin tears, legs normal inspection, no peripheral edema or erythema, calfs nontender to palpation Psych: Normal mood and affect Neuro: AAO x 3, strength intact bilaterally and rated 5/5, no motor deficits, speech is clear, no peripheral sensory deficits Principal Dx & Hospital Course #1 = Principal Diagnosis (1) Multiple falls: (2) Burst fracture of T12 vertebra: (3) Acute sinusitis: (4) Intractable back pain: (5) WENDY (acute kidney injury): (6) Hyperkalemia: (7) Heart disease: (8) Diabetes: (9) Hypothyroidism: (10) GERD (gastroesophageal reflux disease): Plan Mr. Monteiro 82-year-old male with PMHx of multiple falls, CAD s/p 3 cardiac stents in May 2022, AV replacement 08/20/22 at [facility], recently completing cardiac rehab as an outpatient, hx of lumbar decompression fusion of L1-L5 about 5-6 years ago in [place], HTN, HLD, DM type II, GERD and hypothyroidism who presented to the ER on 03/12 with mid to lower back pain which has been ongoing for the past 2.5 weeks after sustaining a fall. Patient found to have burst fracture of T12. Patient's course prolonged for rehab placement; however, notable concern from patient regarding progressive dysphagia. Speech noted patient to have severe oropharyngeal dysphagia without any prior history of neurologic concerns. [employer] discussion with Dr. Medina had on 03/20 recommended OP follow up with Neurology to explore oropharyngeal dysphagia further. Educated patient regarding diet and oral hygiene to prevent aspiration. #Mechanical Fall #Acute Burst Fracture T12 pt reports hx of lumbar decompression fusion in lumbar spine 5-6 years ago by [place] ortho surgeon - Imaging including thoracic, lumbar CT and abdomen pelvis CT reviewed personally - Thoracic CT : T12 burst fracture with 60% loss of vertebral body height and 6 mm of retropulsion which results in moderate central canal stenosis. This fracture is likely subacute. No additional acute to subacute thoracic spine fractures. Evaluated by Dr. Cheng 03/13, plan for brace while ambulating Consideration of future kyphoplasty Continue scheduled Tylenol, and tramadol as needed PT and OT: transferred to rehab #Oropharyngeal Dysphagia #Weak cough Patient reports 2 weeks of weakening cough and difficulty swallowing; declines any neuro history Voice with low intensity, garbled speech Speech consulted today: -Significant dysphagia and aspiration -Diet minced and moist, with mildly thick nectar upon discharge -CT head and neck ordered to assess for soft issue lesions or notable lesion contributing to symptoms -Unremarkable -Consult neurology for further recommendations of notable dysphagia -Follow up for further evaluation as an outpatient. #Acute sinusitis nasal congestion, drainage improving continue Doxycycline Day 05/24, Flonase--sent home with 3 more days to complete course #WENDY *resolved - Unknown creatinine baseline currently, Cr. 1.78 and BUN 50 Creatinine 1.5--> 1.3 likely his baseline Encourage oral fluid intake #Hyperkalemia *resolved - Noted to be 5.5 on admission Potassium now 4.6--> 5.6--> 4.6 asymptomatic low potassium diet started, K normal so far Repeat BMP in am for K trend #Obstructive CAD s/p 3 stents #AV replacement - Patient is status post AV replacement on 09/08 in [facility], 3 cardiac stents placed in May 2022, follows with [facility] cardiology in [place]. He reports just completing 36 sessions of cardiac rehab since August. - HIM records from cardiology results pending - AV valve replacement is unknown if mechanical at this time, see above regarding anticoagulation/antiplatelet - No signs of volume overload No cardiac symptoms continue Eliquis, Plavix #Diabetes Mellitus - ISS with Accu-Cheks ACHS -A1c 6.7% , goal for age -Improved, follow up as an outpatient. #Hypothyroidism - Cont levothyroxine po #GERD - Hx of use of hycosamine abdominal discomfort On day of discharge, patient denied any uncontrolled pain, reported feeling subjectively improved and noted much improvement in aspiration/cough with swallow study. Patient eager for rehab and verbalized understanding about neurology follow up. Discharge Exam Constitutional WD/WN, vitals as above (low voice, garbled speech--marginally improved since day prior) Respiratory normal respiratory effort, lungs clear to auscultation Cardiovascular RRR, no murmur, no edema Gastrointestinal (Abdomen) normal bowel sounds, soft, nontender, no hepatosplenomegaly Neurologic PERRL, EOMI, accommodation nl, no face palsy, no dysarthria Updated Medication List Medication Instructions Recorded Confirmed Type apixaban 2.5 mg tablet (Eliquis) 2.5 mg PO BID 03/12/23 03/12/23 History clopidogrel 75 mg tablet 75 mg PO DAILY 03/12/23 03/12/23 History empagliflozin 10 mg tablet 10 mg PO QAM 03/12/23 03/12/23 History (Jardiance) ezetimibe 10 mg tablet 10 mg PO QAM 03/12/23 03/12/23 History famotidine 40 mg tablet 40 mg PO QAM 03/12/23 03/12/23 History fluticasone propionate 110 2 puff inhalation BID 03/12/23 03/12/23 History mcg/actuation HFA aerosol inhaler hyoscyamine sulfate 0.125 mg tablet 0.125 mg PO TID PRN Abdominal 03/12/23 03/12/23 History Discomfort latanoprost 0.005 % eye drops 1 drp OPB QPM 03/12/23 03/12/23 History levothyroxine 25 mcg tablet 25 mcg PO DAILYBB 03/12/23 03/12/23 History tisqda-pfeiyzjz-gzhfnik 2 - 3 cap PO WM 03/12/23 03/12/23 History 24,000-76,000-120,000 unit capsule,delayed rel (Creon) magnesium oxide 400 mg (241.3 mg 400 mg PO QAM 03/12/23 03/12/23 History magnesium) tablet metformin 1,000 mg tablet 1,000 mg PO BID 03/12/23 03/12/23 History pantoprazole 20 mg tablet,delayed 20 mg PO QAM 03/12/23 03/12/23 History release acetaminophen 500 mg tablet 1,000 mg (2 x 500 mg) PO Q8H 15 03/20/23 Rx (Tylenol Extra Strength) days #90 tabs doxycycline hyclate 100 mg capsule 100 mg PO Q12H 4 days #8 caps 03/20/23 Rx polyethylene glycol 3350 17 gram 17 g PO DAILY PRN constipation #30 03/20/23 Rx oral powder packet (Miralax) ea tramadol 50 mg tablet 50 mg PO Q12 PRN pain 15 days #30 03/20/23 Rx tabs Hospital Stay Data Consultations 03/12/23 17:04 ED Decision to Admit Stat 03/12/23 17:39 Consult Orthopedic Spine Surgery Routine 03/12/23 18:30 HIM [Consult Health Information Management] Stat 03/19/23 15:19 Consult Neurology Routine Diagnostic Imagining Performed 03/12/23 14:19 CT lumbar spine wo con Stat CT thoracic spine wo con Stat 03/12/23 15:38 CT abd pelvis wo con Stat 03/19/23 09:40 CT head/brain wo con Routine CT soft tissue neck wo con Routine 03/19/23 13:30 FL video swallow Routine Pending Results Patient Have Any Pending Studies at Discharge: No Discharge Instructions Given to Patient (Per Discharging Provider) You were admitted for concerns of ongoing back pain after a fall and found to have a T12 burst fracture in your back. Dr Cheng, Ortho Spine, evaluated you and recommended rehab and back brace while you are up and moving. Dr Cheng would like you to follow up for consideration of future intervention. You will continue Tylenol and Tramadol for pain control. You can take 500-1000mg Tylenol every 8 hours, not to exceed 4 times daily. You will be sent with Tramadol 50mg for severe pain as needed to take twice a day. You will be sent with a prescription for daily Miralax to ensure good bowel movements while on Tramadol. You expressed concerns over weak voice and swallowing difficulty. Swallow study revealed you are aspirating, or foods/liquids you swallow are refluxing into airway. It is recommended you change your diet to minced and moist, and thicken your fluids. Please follow up with Neurology for further outpatient evaluation of your concerns. Neurology was spoken with during admission and recommended close follow up. Please prioritize oral hygiene, ensuring you brush your teeth morning and night, Total Time Total Time Spent Total Time Spent (In Minutes): 45
== END 2023-03-20 12:14 | DRG 543 ==
LOC: ED 13:01 → SUATTDRO 17:39 → EDINP 17:39 → 3W 20:30